=== PATIENT | male | born 2000 | race Two or more races ===

== ENCOUNTER 2021-02-18 10:55 | Outpatient (REF) | payer OTHER, SELFPAY ==
[2021-02-18 11:15] LABS: COVID-19 Test Negative (Negative)
== END 2021-02-18 10:56 | disposition home or self-care (01) ==
LOC: HO.LAB 10:55
PROVIDERS: Visit Provider Internal Medicine
DX: Z20.822 Contact with and (suspected) exposure to COVID-19 (principal)
CPT/HCPCS: 36415; 87635; C9803

== ENCOUNTER 2021-03-09 08:51 | Emergency (ER) | payer OTHER, SELFPAY ==
--- NOTE | ~2021-03-09 | XR_ITS ---
EXAMINATION: XR ANKLE, LEFT CLINICAL INFORMATION: Pain. COMPARISON: None TECHNIQUE: AP, lateral, and mortise views of the left ankle. FINDINGS: There is moderate lateral malleolar soft tissue swelling. No visible acute fracture, dislocation or subluxation seen. The ankle mortise and subtalar joints are normal. XR/XR ankle LT 2V IMPRESSION: Moderate lateral malleolar soft tissue swelling. No visible acute fracture, dislocation or lytic process seen.
[2021-03-09 09:00] VITALS: BP 129/79; PULSE 82; RESP 14; TEMP 36.2; O2SAT 97; BMI 29.5
--- NOTE | 2021-03-09 09:05 | ED.LOWEXIN ---
HPI - Extremity Injury (Lower) General Chief Complaint: Extremity Injury, Lower Stated Complaint: ankle injury Time Seen by Provider: 03/09/21 09:01 Source: patient Mode of arrival: ambulatory Limitations: no limitations History of Present Illness HPI Narrative: 20-year-old male with a past medical history of a benign heart murmur here with complaints of left ankle pain after an inversion injury which occurred yesterday while playing basketball. Related Data Allergies Allergy/AdvReac Type Severity Reaction Status Date / Time No Known Allergies Allergy Unverified 06/20/20 16:41 Review of Systems Review of Systems: Yes all other systems are reviewed and are negative Constitutional: Constitutional: Reports no additional constitutional complaints, Denies body ache(s), Denies chills, Denies fever(s), Denies headache(s) and Denies weakness Eyes: Eyes: Reports no additional eye complaints and Denies change in vision ENT: Reports system reviewed and no additional complaints, except as documented, Denies dizziness, Denies headache(s), Denies nasal congestion, Denies nasal discharge and Denies neck pain Cardiovascular: Cardiovascular: Reports no additional cardiovascular complaints, Denies chest pain, Denies leg edema and Denies dyspnea Respiratory: Respiratory: Reports no additional respiratory complaints, Denies cough and Denies dyspnea Gastrointestinal: Gastrointestinal: Reports no additional gastrointestinal complaints, Denies abdominal pain, Denies diarrhea, Denies nausea and Denies vomiting Genitourinary: Genitourinary: Denies urinary incontinence Musculoskeletal: Musculoskeletal: Reports no additional musculoskeletal complaints, Denies back pain, Reports arthralgias, Reports joint swelling, Reports limited range of motion, Denies neck pain, Denies numbness and Denies tingling Integumentary/Breasts: Skin/Breast: Reports system reviewed and no additional complaints, except as docu and Denies rash Neurologic: Reports system reviewed and no additional complaints, except as documented, Denies Abnormal speech present, Denies dizziness, Denies headache(s), Denies numbness, Denies tingling and Denies weakness PMFSH Past Medical History Attestation statement: The following information was validated with the patient. Source: old records reviewed and nursing notes reviewed Medical History Heart murmur Social History Social History Advance Directives: Yes Advance Directives Information Provided: Yes Advance Directives on File: No Physical Exam Vital Signs: Vital Signs: Last Vital Signs Temp 97.2 F 03/09/21 09:00 Pulse 82 03/09/21 09:00 Resp 14 03/09/21 09:00 BP 129/79 03/09/21 09:00 Pulse Ox 97 03/09/21 09:00 Body Mass Index 29.5 Const: General: cooperative, healthy appearing, comfortable and no acute distress Orientation/consciousness: patient oriented x3 Limitations: no limitations HENMT: Head: Yes normal to inspection Ears: hearing grossly normal bilaterally General nose exam: Normal external nose present Face and sinus: Yes normal facial exam Mouth: Normal oral and palatal mucosa present Throat: Yes posterior oropharynx normal Eyes: General: appearance normal, both eyes and all related structures Pupils: Equal, round and reactive pupils present Neck: Neck: Yes normal visual inspection Chest: Chest palpation & inspection: normal inspection of the chest Resp: Effort & Inspection: normal respiratory effort Auscultation: clear to auscultation bilaterally Cardio: Rate: regular rate Rhythm: regular rhythm Peripheral pulses: Peripheral pulses 2+ throughout GI: Inspection: Yes normal to inspection Palpation (GI): Soft to palpation and nontender Auscultation: normal bowel sounds Back/Spine/Pelvis: Thoracic/Lumbar Spine: thoracic and lumbar spine normal to inspection Skin: General skin exam: no rashes or lesions noted Neuro: General: patient oriented x3, no focal motor deficits and normal sensation to monofilament Cranial nerves: Yes Equal, round and reactive pupils present Cognition (Neuro): normal cognition Speech: No Abnormal speech present Gait exam (Neuro): Normal gait present Motor exam (neuro): 5/5 motor strength present throughout Extrem: Other: No tenderness over the foot. There is mild swelling and tenderness over the lateral aspect of the ankle. No tenderness over the medial aspect or posterior aspect. Negative Aguillon test. No ligamental laxity. Pain with dorsiflexion but able General: Yes normal to inspection Course Course Course Narrative: 20-year-old male here with left ankle pain status post inversion injury yesterday. Will need x-rays. If negative likely sprain and will need air splint and crutches. 1030-x-ray negative for any bony abnormality. Likely sprain. Will place an air cast and given crutches w/ instruction. Reviewed MARY BETH, f/u with PCP in 1 week if no improvement. Reviewed worrisome signs and symptoms when to return to the emergency department. Comfortable discharge home. Procedures Procedure Narrative Procedure Narrative: Air cast and crutches MDM - Extremity Injury (Lower) MDM Narrative Medical decision making narrative: Fracture Differential Diagnosis Differential diagnosis: Likely ankle sprain and strain Medical Records Attestation: I reviewed the patient's medical records. Lab Data Attestation: I reviewed the patient's lab results. Imaging Data left ankle x-ray: Attestation: I personally reviewed and interpreted this imaging study as follows: Radiologist's impression: EXAMINATION: XR ANKLE, LEFT CLINICAL INFORMATION: Pain. COMPARISON: None TECHNIQUE: AP, lateral, and mortise views of the left ankle. FINDINGS: There is moderate lateral malleolar soft tissue swelling. No visible acute fracture, dislocation or subluxation seen. The ankle mortise and subtalar joints are normal. XR/XR ankle LT 2V IMPRESSION: Moderate lateral malleolar soft tissue swelling. No visible acute fracture, dislocation or lytic process seen. Discharge Plan Discharge Clinical Impression: Ankle sprain and strain Patient Disposition: Home, Self-Care Instructions: Ankle Sprain (ED) Additional Instructions: For the next few days use the air splint and crutches. Limit weight-bearing. Once here able to bear weight on the ankle without experiencing pain when you may stop using the crutches. Elevation, ice, alternate Motrin and Tylenol at home for pain Follow-up with your primary care doctor in 5-7 days for persistent pain Referrals: Physician,Unknown [Primary Care Provider] - 2 days Interventions: ED Discharge Assessment Last Done: 03/09/21 10:24 Discharge Date/Time: 03/09/21 10:20
== END 2021-03-09 10:20 | disposition home or self-care (01) ==
LOC: HO.ED 09:21
PROVIDERS: Emergency Provider Emergency Medicine Emergency Medical Services
DX: S93.402A Sprain of unspecified ligament of left ankle, initial encounter (principal); S96.912A Strain of unspecified muscle and tendon at ankle and foot level, left foot, initial encounter; X50.1XXA Overexertion from prolonged static or awkward postures, initial encounter; Y93.67 Activity, basketball; Y92.310 Basketball court as the place of occurrence of the external cause; Y99.9 Unspecified external cause status
CPT/HCPCS: 73600; 99283

== ENCOUNTER 2021-04-23 07:36 | Emergency (ER) | payer OTHER, SELFPAY ==
--- NOTE | ~2021-04-23 | XR_ITS ---
EXAMINATION: XR HAND, RIGHT CLINICAL INFORMATION: Trauma COMPARISON: Previous x-ray April 2019 TECHNIQUE: PA, lateral, and oblique views of the right hand. FINDINGS: The bones and soft tissues are normal. No fracture. Alignment is anatomic. Joint spaces are maintained. No erosions or soft tissue calcifications. XR/XR hand RT min 3V IMPRESSION: Normal right hand.
[2021-04-23 07:53] VITALS: BP 125/79; PULSE 62; RESP 16; TEMP 36.6; O2SAT 100; BMI 29.5
--- NOTE | 2021-04-23 07:56 | ED.EXTPRO ---
HPI - Extremity Problem General Chief complaint: Extremity Injury, Upper Stated complaint: Figure pain Time Seen by Provider: 04/23/21 07:54 Source: patient Mode of arrival: ambulatory Limitations: no limitations History of Present Illness MD Complaint: extremity pain Onset (ago): day(s) (1) Pain Consistency: constant Location: right and upper extremity (hand middle finger knuckle) Quality: aching Radiation: none Relieving factors: nothing Exacerbating factors: palpation Associated symptoms: denies other symptoms Context: other (playing basketball and hit R hand dominant into a pole) Related Data Allergies Allergy/AdvReac Type Severity Reaction Status Date / Time No Known Allergies Allergy Unverified 06/20/20 16:41 Review of Systems Review of Systems: Constitutional : No Fever, No Chills ENT/Mouth : No Ear Pain, No Hoarseness, No sore throat Eyes: No Eye Pain, No Swelling, No Redness, No Foreign Body Cardiovascular : No Chest Pain, No SOB Respiratory : No Cough, No Dyspnea Gastrointestinal : No Nausea, No Vomiting, No Diarrhea, No abdominal Pain Genitourinary : No Dysuria, No Hematuria Musculoskeletal : positive joint pain, No Myalgias, No Joint Swelling Skin : No Skin lacerations, No rash Neuro : No Weakness, No Numbness, No Loss of Consciousness, No Dizziness, No Headache PMFSH Past Medical History Attestation statement: The following information was validated with the patient. Medical History Heart murmur Social History Social History (Updated 04/23/21 @ 08:14 by Kimmy Chowdhury DO) Patient Tobacco Use Status: Never used Tobacco Advance Directives: No Advance Directives Information Provided: Yes Physical Exam Vital Signs: Vital Signs: Last Vital Signs Temp 98 F 04/23/21 08:00 Pulse 62 04/23/21 08:00 Resp 16 04/23/21 08:00 BP 125/79 04/23/21 08:00 Pulse Ox 100 04/23/21 08:00 Body Mass Index 29.5 Appearance: Alert. Oriented X3. No acute distress. Eyes: Pupils equal, round and reactive to light. ENT: Pharynx normal. Neck: Normal inspection. Neck supple. CVS: Normal heart rate and rhythm. Pulses normal. Respiratory: No respiratory distress. Breath sounds normal. Abdomen: Soft and nontender. Skin: Skin warm and dry. Normal skin color. Normal skin turgor. Extremities: No lower extremity edema. R hand ttp along index, middle, ring finger MCPs distal NV intact Neuro: Oriented X 3. No motor deficit. No sensory deficit. Course Course Course Narrative: no fracture, stable for DC MDM - Extremity (Nontraumatic) MDM Narrative Medical decision making narrative: 20 yo male R hand dominant struck hand into pole playing basketball now c/o pain at this time will obtain xrays for fracture he is NV intact Discharge Plan Discharge Clinical Impression: Hand sprain Qualifiers: Encounter type: initial encounter Laterality: right Qualified Code(s): S63.91XA - Sprain of unspecified part of right wrist and hand, initial encounter Patient Disposition: Home, Self-Care Instructions: Hand Sprain (ED) Additional Instructions: return to ED for any worsening symptoms or concerns wear conner wrap x 5 days follow up with your doctor in 5 days if not better Stand Alone Forms: Work/School Release
[2021-04-23 08:00] VITALS: BP 125/79; PULSE 62; RESP 16; TEMP 36.6; O2SAT 100
== END 2021-04-23 08:51 | disposition home or self-care (01) ==
PROVIDERS: Emergency Provider Emergency Medicine; PCP Internal Medicine
DX: S63.91XA Sprain of unspecified part of right wrist and hand, initial encounter (principal); W22.09XA Striking against other stationary object, initial encounter; Y93.67 Activity, basketball; Y92.310 Basketball court as the place of occurrence of the external cause; Y99.9 Unspecified external cause status
CPT/HCPCS: 73130; 99283; 99284

== ENCOUNTER 2021-08-22 15:33 | Emergency (ER) | payer OTHER, SELFPAY ==
--- NOTE | ~2021-08-22 | CT_ITS ---
EXAMINATION: CT BRAIN CT FACIAL BONES CLINICAL INFORMATION: Trauma, pain COMPARISON: None TECHNIQUE: Contiguous axial imaging was performed from the skull base to vertex without intravenous administration of contrast. CT facial bones also performed in axial plane without contrast. Additional 2-D coronal and sagittal reformatted images are generated on the CT workstation for both exams and uploaded to PACS. This CT examination was performed using dose optimization techniques as appropriate, variously including the following: *Automated exposure control *Adjustment of mA and/or kV according to patient size (this includes techniques or standardized protocols for targeted exams where dose is matched to indication/reason for exam; i.e. extremities or head) *Use of iterative reconstruction technique DLP: 752 mGy-cm (brain) 528 mGy-cm (facial) FINDINGS: Head: There is no intracranial hemorrhage, hematoma, or extra-axial fluid collection. The ventricles are normal in size. There is no hydrocephalus, edema, or mass effect. The jean-white matter differentiation appears symmetric. There is no visible acute territorial infarct or mass lesion. The calvarium appears intact. There is no pneumocephalus or orbital emphysema. The visualized sinuses and middle ears and mastoid air cells show no significant mucosal thickening. There are no air-fluid levels. Facial: The facial bones appear intact with no fracture. The orbital rims and floors, nasal bones, zygomatic arches, pterygoid plates, and mandible show no fracture. Globes and retrobulbar soft tissues are unremarkable. There are unerupted molars on both sides of the mandible. CT/CT facial bones wo con IMPRESSION: 1. No acute intracranial abnormality. 2. No facial bone fracture.
--- NOTE | ~2021-08-22 | CT_ITS ---
EXAMINATION: CT BRAIN CT FACIAL BONES CLINICAL INFORMATION: Trauma, pain COMPARISON: None TECHNIQUE: Contiguous axial imaging was performed from the skull base to vertex without intravenous administration of contrast. CT facial bones also performed in axial plane without contrast. Additional 2-D coronal and sagittal reformatted images are generated on the CT workstation for both exams and uploaded to PACS. This CT examination was performed using dose optimization techniques as appropriate, variously including the following: *Automated exposure control *Adjustment of mA and/or kV according to patient size (this includes techniques or standardized protocols for targeted exams where dose is matched to indication/reason for exam; i.e. extremities or head) *Use of iterative reconstruction technique DLP: 752 mGy-cm (brain) 528 mGy-cm (facial) FINDINGS: Head: There is no intracranial hemorrhage, hematoma, or extra-axial fluid collection. The ventricles are normal in size. There is no hydrocephalus, edema, or mass effect. The jean-white matter differentiation appears symmetric. There is no visible acute territorial infarct or mass lesion. The calvarium appears intact. There is no pneumocephalus or orbital emphysema. The visualized sinuses and middle ears and mastoid air cells show no significant mucosal thickening. There are no air-fluid levels. Facial: The facial bones appear intact with no fracture. The orbital rims and floors, nasal bones, zygomatic arches, pterygoid plates, and mandible show no fracture. Globes and retrobulbar soft tissues are unremarkable. There are unerupted molars on both sides of the mandible. CT/CT head/brain wo con IMPRESSION: 1. No acute intracranial abnormality. 2. No facial bone fracture.
[2021-08-22 16:08] VITALS: BP 135/78; PULSE 64; RESP 18; TEMP 36.7; O2SAT 99; BMI 30.4
--- NOTE | 2021-08-22 16:17 | ED_ITS ---
HPI - Head Injury General Chief complaint: Head Injury Stated complaint: head injury on 08/21 Time Seen by Provider: 08/22/21 16:11 History of Present Illness HPI Narrative: Patient is 20 old was playing basketball yesterday. Subsequently fell. Hitting his head. Positive dizziness. Positive nausea. There was no loss of consciousness. Patient is complaining of pain to the face. There is no focal weakness. No neck pain. Patient not on blood thinners. Patient is from home. Related Data Allergies Allergy/AdvReac Type Severity Reaction Status Date / Time No Known Allergies Allergy Unverified 06/20/20 16:41 Review of Systems Review of Systems: No fever no chills no diaphoresis no nausea no vomiting no focal weakness all system reviewed otherwise negative [facility] Past Medical History Attestation statement: The following information was validated with the patient. Medical History Heart murmur Social History Social History Patient Tobacco Use Status: Never used Tobacco Advance Directives: No Advance Directives Information Provided: No Physical Exam Vital Signs: Vital Signs: Last Vital Signs Temp 98.0 F 08/22/21 16:08 Pulse 64 08/22/21 16:08 Resp 18 08/22/21 16:08 BP 135/78 08/22/21 16:08 Pulse Ox 99 08/22/21 16:08 Body Mass Index 30.4 Appearance: Alert. Oriented X3. No acute distress. Eyes: Pupils equal, round and reactive to light. positive swelling to the midline face and to the bridge of the nose. There is no midface tenderness. There is no malocclusion noted. ENT: Pharynx normal. Neck: Normal inspection. Neck supple. No lymph nodes noted. No crepitus CVS: Normal heart rate and rhythm. Pulses normal. Normal S1 and S2 Respiratory: No respiratory distress. Breath sounds normal. No Wheezing. No rales Abdomen: Soft and nontender. No rigidity. No distention. good BS x4 Skin: Skin warm and dry. Normal skin color. Normal skin turgor. Extremities: No lower extremity edema. Neurovascular intact to all extremities. No Lacerations. No Rash Neuro: Oriented X 3. No motor deficit. No sensory deficit. Moving all extermities. No slurred speech MDM - Head Injury MDM Narrative Medical decision making narrative: patient's CT scan of the head and face were both negative for any acute fracture. Will have patient follow head injury precautions. Patient's tetanus was updated. In stable condition with discharge home. Neurologically intact. Medical Records Attestation: I reviewed the patient's medical records. Lab Data Attestation: I reviewed the patient's lab results. Discharge Plan Discharge Clinical Impression: Closed head injury Patient Disposition: Home, Self-Care Instructions: Head Injury (ED) Referrals: Gricel Barreto MD [Primary Care Provider] - 2 days
[2021-08-22] MEDS: Diphth,Pertus(ACell),Tet Adult 0.5 ML SYRINGE IM (17:28)
[2021-08-22 18:03] VITALS: BP 133/71; PULSE 65; RESP 18; O2SAT 98
== END 2021-08-22 18:04 | disposition home or self-care (01) ==
PROVIDERS: Emergency Provider Emergency Medicine Emergency Medical Services; PCP Internal Medicine
DX: S09.90XA Unspecified injury of head, initial encounter (principal); W01.10XA Fall on same level from slipping, tripping and stumbling with subsequent striking against unspecified object, initial encounter; R11.0 Nausea; Y93.67 Activity, basketball; Y92.310 Basketball court as the place of occurrence of the external cause; Y99.9 Unspecified external cause status
CPT/HCPCS: 70450; 70486; 90471; 90715; 99283; 99284

== ENCOUNTER 2021-09-09 10:56 | Outpatient (REF) | payer OTHER, SELFPAY | END 2021-09-09 10:57 | disposition home or self-care (01) | LOC: HO.LAB 10:56 | PROVIDERS: PCP Internal Medicine; Visit Provider Internal Medicine | DX: Z20.822 Contact with and (suspected) exposure to COVID-19 (principal) | CPT/HCPCS: C9803; U0003; U0005 ==

== ENCOUNTER 2022-04-18 09:32 | Emergency (ER) | payer OTHER, SELFPAY ==
[2022-04-18 09:48] VITALS: BP 148/87; PULSE 65; RESP 16; TEMP 36.4; O2SAT 98; BMI 31.4
--- NOTE | 2022-04-18 10:20 | ED_ITS ---
HPI - Male Genitourinary General Chief complaint: Urogenital-Male Stated complaint: ?uti Time Seen by Provider: 04/18/22 10:19 Source: patient Mode of arrival: ambulatory Limitations: no limitations History of Present Illness HPI Narrative: 21-year-old male came in for evaluation for UTI. Three days ago patient noted mehdi blood in the urine with some upper abdominal pain/epigastric pain now pain is resolved, patient was seen at an urgent care tested for STD and was negative patient was prescribed antibiotic for UTI which patient opted not to take it seeking 2nd opinion today in the ED. Patient is sexually active with 1 partner no risk for STD. No history of kidney stones or UTI in the past. No urethral discharge, no rash. Related Data Allergies Allergy/AdvReac Type Severity Reaction Status Date / Time No Known Allergies Allergy Unverified 04/18/22 09:48 Review of Systems Review of Systems: All other systems are reviewed and are negative Constitutional: Reports as per HPI and Reports no additional constitutional complaints Eyes: Reports as per HPI and Reports no additional eye complaints Reports system reviewed and no additional complaints, except as documented Cardiovascular: Reports as per HPI and Reports no additional cardiovascular co mplaints Respiratory: Reports as per HPI and Reports no additional respiratory complaints Gastrointestinal: Reports as per HPI and Reports no additional gastrointestinal complaints Genitourinary: Reports no additional female genitourinary complaints Musculoskeletal: Reports no additional musculoskeletal complaints Skin/Breast: Reports system reviewed and no additional complaints, except as docu Psychiatric: Reports no additional psychiatric complaints Endocrine: Reports no additional endocrine complaints Hematologic/Lymphatic: Reports no additional hematologic/lymphatic complaints Allergic/Immunologic: Reports no additional allergic/immunologic complaints Reports system reviewed and no additional complaints, except as documented and Reports Abnormal speech present [facility] Past Medical History Medical History Heart murmur Social History Social History Patient Tobacco Use Status: Never used Tobacco Advance Directives: No Advance Directives Information Provided: No Physical Exam Vital Signs: Vital Signs: Last Vital Signs Temp 97.5 F 04/18/22 09:48 Pulse 65 04/18/22 09:48 Resp 16 04/18/22 09:48 BP 148/87 H 04/18/22 09:48 Pulse Ox 98 04/18/22 09:48 O2 Del Method 04/18/22 09:48 BMI result Body Mass Index 31.4 Vital signs have been reviewed as appeared to be correct. Blood pressure normal. Heart rate normal. Respiration rate normal. Temperature normal. Oxygen saturation normal. Appearance: Alert. Oriented X3. No acute distress. Head: Normal external exam. Normocephalic. Atraumatic. No [place] signs noted. No raccoon eyes noted Eyes: PERRLA. EOMI. Conjunctiva and sclera normal. Eyelids normal. ENT: TM's Normal. Pharynx normal. Uvula midline. Moist mucous membranes. No trismus noted. No drooling noted. No muffled voice noted. Neck: Normal inspection. Neck supple. FROM. No adenopathy. Thyroid Normal. No meningeal signs. No neck mass noted. CVS: Normal heart rate and rhythm. Heart sound normal. No murmurs noted. Pulses normal throughout. Respiratory: No respiratory distress. Painless inspiration. Breath sounds normal. No wheezes/rales/rhonchi noted. Chest nontender. No accessory muscle usage noted or decreased air movement noted. Abdomen: Soft and nontender. Bowel sounds normal in all 4 quadrants. No distention noted. No organomegaly noted. No visible injury noted. exam: Circumcised, normal inspection. Cremasteric reflexes intact. Back: No CVA tenderness. Full range of motion noted. Skin: Skin warm and dry. Normal skin color. Normal skin turgor. No rashes/lesions/lacerations noted. Extremities: No lower extremity edema. Extremities exhibit normal range of motion. Extremities nontender. Neuro: Oriented X 3. Cranial nerve exam: II-XII are grossly intact No motor deficit. No sensory deficit. Reflexes normal. Course Course Course Narrative: 21-year-old male came in for evaluation of blood in the urine. UA revealed no UTI, pending STD (patient tested negative at walk-in urgent care). Patient at this point no need for antibiotic to follow up with urologist if blood in the urine reoccur. [facility] - Male Genitourinary Lab Data Attestation: I reviewed the patient's lab results. Labs: Lab Results 04/18/22 Range/Units 10:04 Urine Color YELLOW Urine Appearance HAZY Urine pH 7.0 (5.0-8.0) Ur Specific [place] <= 1.005 (1.005-1.025) Urine Protein NEG (NEG-TRACE) MG/DL Urine Glucose (UA) NEG (NEG) MG/DL Urine Ketones NEG (NEG) MG/DL Urine Blood NEG (NEG) Urine Nitrite NEG (NEG) Ur Leukocyte Esterase NEG (NEG) Discharge Plan Discharge Clinical Impression: Hematuria Patient Disposition: Home, Self-Care Instructions: Hematuria (ED) Referrals: Gricel Barreto MD [Primary Care Provider] - Clyde Simon MD [Physician] -
[2022-04-18 10:22] LABS: Appearance Urine HAZY; Color Urine YELLOW; Glucose Urine UA NEG (NEG); Leukocyte Esterase Urine NEG (NEG); Nitrite Urine NEG (NEG); Specific Gravity - Urine <= 1.005 (1.005-1.025); Urine Blood NEG (NEG); Urine Ketones NEG (NEG); Urine Protein NEG (NEG-TRACE)
[2022-04-18 16:49] LABS: CT PCR NOT DETECTED (Not Detect.); NG PCR NOT DETECTED (Not Detect.)
== END 2022-04-18 12:05 | disposition home or self-care (01) ==
PROVIDERS: Emergency Provider Emergency Medicine; PCP Internal Medicine
DX: R31.9 Hematuria, unspecified (principal); R10.10 Upper abdominal pain, unspecified
CPT/HCPCS: 81003; 87491; 87591; 99283

== ENCOUNTER 2022-07-19 13:47 | Emergency (ER) | payer OTHER, SELFPAY ==
--- NOTE | ~2022-07-19 | XR_ITS ---
EXAMINATION: XR FEMUR, RIGHT CLINICAL INFORMATION: Injury. Pain. COMPARISON: None TECHNIQUE: AP and lateral views of the right femur were obtained. FINDINGS: The bones and soft tissues are normal. No fracture. No osseous lesions. XR/XR femur RT 2V IMPRESSION: Normal right femur.
[2022-07-19 13:59] VITALS: BP 129/71; PULSE 93; RESP 18; O2SAT 97; BMI 32.5
[2022-07-19 17:11] VITALS: BP 132/74; PULSE 74; RESP 18; TEMP 36.6; O2SAT 98
--- NOTE | 2022-07-19 17:50 | ED.EXTPRO ---
HPI - Extremity Problem General Chief complaint: Extremity Problem Stated complaint: hamstring Time Seen by Provider: 07/19/22 17:21 Source: patient Mode of arrival: ambulatory Limitations: no limitations History of Present Illness HPI Narrative: 21-year-old male who presents with right posterior thigh pain which occurred suddenly. Patient tells me that he was warming up to play football and when he took off to run he felt an immediate pain in his posterior right thigh and a popping sensation.. Patient reports since then continued pain. No associated numbness, tingling or weakness Related Data Previous Rx's Medication Instructions Recorded ibuprofen 600 mg tablet 600 mg PO Q6H PRN pain #30 tabs 07/19/22 Allergies Allergy/AdvReac Type Severity Reaction Status Date / Time No Known Allergies Allergy Unverified 04/18/22 09:48 Review of Systems Review of Systems: Yes all other systems are reviewed and are negative Constitutional: Constitutional: Reports no additional constitutional complaints, Denies body ache(s), Denies chills, Denies fever(s), Denies headache(s) and Denies weakness Eyes: Eyes: Reports no additional eye complaints and Denies change in vision ENT: Reports system reviewed and no additional complaints, except as documented, Denies dizziness, Denies headache(s), Denies nasal congestion, Denies nasal discharge and Denies neck pain Cardiovascular: Cardiovascular: Reports no additional cardiovascular complaints, Denies chest pain, Denies leg edema and Denies dyspnea Respiratory: Respiratory: Reports no additional respiratory complaints, Denies cough and Denies dyspnea Gastrointestinal: Gastrointestinal: Reports no additional gastrointestinal complaints, Denies abdominal pain, Denies diarrhea, Denies nausea and Denies vomiting Genitourinary: Genitourinary: Denies urinary incontinence Musculoskeletal: Musculoskeletal: Reports no additional musculoskeletal complaints, Denies back pain, Denies arthralgias, Denies joint swelling, Denies limited range of motion, Denies neck pain, Denies numbness, Denies tingling and Reports other (+muscle pain ) Integumentary/Breasts: Skin/Breast: Reports system reviewed and no additional complaints, except as docu and Denies rash Neurologic: Reports system reviewed and no additional complaints, except as documented, Denies Abnormal speech present, Denies dizziness, Denies headache(s), Denies numbness, Denies tingling and Denies weakness FORMERLY [facility] Past Medical History Attestation statement: The following information was validated with the patient. Source: old records reviewed and nursing notes reviewed Medical History Heart murmur Social History Social History Patient Tobacco Use Status: Never used Tobacco Advance Directives: No Advance Directives Information Provided: No Physical Exam Vital Signs: Vital Signs: Last Vital Signs Temp 97.8 F 07/19/22 17:11 Pulse 74 07/19/22 17:11 Resp 18 07/19/22 17:11 BP 132/74 07/19/22 17:11 Pulse Ox 98 07/19/22 17:11 O2 Del Method 07/19/22 17:11 BMI result Body Mass Index 32.5 Const: General: cooperative, healthy appearing, comfortable and no acute distress Orientation/consciousness: patient oriented x3 Limitations: no limitations HEENT: Head: Yes normal to inspection Ears: hearing grossly normal bilaterally General nose exam: Normal external nose present Face and sinus: Yes normal facial exam Mouth: Normal oral and palatal mucosa present Throat: Yes posterior oropharynx normal Eyes: General: appearance normal, both eyes and all related structures Pupils: Equal, round and reactive pupils present Neck: Neck: Yes normal visual inspection Chest: Chest palpation & inspection: normal inspection of the chest Resp: Effort & Inspection: normal respiratory effort Auscultation: clear to auscultation bilaterally Cardio: Rate: regular rate Rhythm: regular rhythm Peripheral pulses: Peripheral pulses 2+ throughout GI: Inspection: Yes normal to inspection Palpation (GI): Soft to palpation and nontender Auscultation: normal bowel sounds Back/Spine/Pelvis: Thoracic/Lumbar Spine: thoracic and lumbar spine normal to inspection Skin: General skin exam: no rashes or lesions noted Neuro: General: patient oriented x3, no focal motor deficits and normal sensation to monofilament Cranial nerves: Yes Equal, round and reactive pupils present Cognition (Neuro): normal cognition Speech: No Abnormal speech present Gait exam (Neuro): Normal gait present Motor exam (neuro): 5/5 motor strength present throughout Extrem: Other: To the posterior thigh there is swelling/tenderness more proximally and medially. Pain with flexion/extension of the knee but able. NV intact distally. NO knee pain. NO hip pain. Course Course Course Narrative: X-rays of the leg show no bony abnormality. Likely hamstring strain. Low concern for rupture as patient is able to flex and extend the leg. Patient placed in Eduard wrap and given crutches for home. Recommend follow-up with Orthopedics the next week to for any persistent symptoms. Recommended ice, crutches for ambulation, Eduard wrap. Patient should use ibuprofen for pain as needed. Reviewed worrisome signs and symptoms of when to return to the emergency room. Comfortable plan for discharge home. MDM - Extremity (Nontraumatic) MDM Narrative Medical decision making narrative: 21 yo Medical Records Attestation: I reviewed the patient's medical records. Lab Data Attestation: I reviewed the patient's lab results. Imaging Data FEMUR XRAY: Attestation: I personally reviewed and interpreted this imaging study as follows: Radiologist's impression: Launch?Image [place] [id number] XRay Report Signed Patient: Poli Hoff MR#: [id number] : 2000 Acct:[id number] Age/Sex: 21 / M ADM Date: 07/19/22 Loc: HO.ED Attending Dr: Ordering Physician: Tiera Huang NP Date of Service: 07/19/22 Procedure(s): XR femur RT 2V Accession Number(s): [id number] cc: Tiera Huang NP~ EXAMINATION: XR FEMUR, RIGHT CLINICAL INFORMATION: Injury. Pain.? COMPARISON: None? TECHNIQUE: AP and lateral views of the right femur were obtained. FINDINGS: The bones and soft tissues are normal. No fracture. No osseous lesions. ? XR/XR femur RT 2V IMPRESSION: Normal right femur. Procedures Procedure Narrative Procedure Narrative: EDUARD WRAP, CRUTCHES Discharge Plan Discharge Clinical Impression: Right hamstring muscle strain Patient Disposition: Home, Self-Care Instructions: Muscle Strain (ED), Hamstring Injury (ED), R.I.C.E. Treatment (ED) Additional Instructions: Rest, ice, eduard wrap for comfort, crutches for ambulation Elevation of the leg Follow-up with orthopedics for any persistent symptoms Prescriptions: New ibuprofen 600 mg tablet 600 mg PO Q6H PRN (Reason: pain) Qty: 30 0RF Referrals: [facility] [Provider Group] - 1 week Stand Alone Forms: Work/School Release
[2022-07-19] MEDS: Ketorolac Tromethamine 60 MG/2 ML VIAL IM (18:40)
== END 2022-07-19 18:58 | disposition home or self-care (01) ==
PROVIDERS: Emergency Provider Internal Medicine; PCP Internal Medicine
DX: S86.911A Strain of unspecified muscle(s) and tendon(s) at lower leg level, right leg, initial encounter (principal); S76.811A Strain of other specified muscles, fascia and tendons at thigh level, right thigh, initial encounter; M79.604 Pain in right leg; Y93.61 Activity, american tackle football; Y93.9 Activity, unspecified; Y92.321 Football field as the place of occurrence of the external cause; Y99.9 Unspecified external cause status
CPT/HCPCS: 73552; 96372; 99284; J1885

== ENCOUNTER 2022-09-17 14:06 | Outpatient (REF) | payer OTHER, SELFPAY ==
--- NOTE | ~2022-09-17 | XR_ITS ---
EXAMINATION: XR KNEE, LEFT CLINICAL INFORMATION: Left knee pain COMPARISON: None TECHNIQUE: AP and lateral views of the left knee. FINDINGS: No fracture, dislocation, or destructive process. No visible suprapatellar effusion. Hoffa's fat pad appears normal. There is no joint narrowing or erosive change. XR/XR knee LT 2V IMPRESSION: Unremarkable left knee.
== END 2022-09-17 14:07 | disposition home or self-care (01) ==
LOC: HO.XRAY 14:06
PROVIDERS: PCP Internal Medicine; Visit Provider Internal Medicine
DX: M25.562 Pain in left knee (principal)
CPT/HCPCS: 73560

== ENCOUNTER → 2022-09-18 09:32 | Outpatient (REF) | payer OTHER, SELFPAY ==
--- NOTE | 2022-09-18 09:38 | CA_ITS ---
Transthoracic Echocardiogram Amended Patient (Last, First, Middle): Poli Hoff, Gender: Male Date of : 2000 Age: 21 Procedure Date: 09/18/2022 Procedure Type: Transthoracic Echocardiogram Location: OP Height: 175.26 cm Weight: 99.34 kg BSA: 2.15 m2 Heart Rate: 69 bpm BP: 115 / 70 mmHg Trial Lawyer: MYA Referring MD: Gricel Barreto MD Symptoms: R94.31 - Abnormal electrocardiogram [ECG] [EKG] Study Quality: Adequate ECG Rhythm: Sinus Conclusions: - The left ventricular systolic function is normal. The calculated ejection fraction is 59% by biplane method. - There is mild dilatation of the sinuses of Valsalva measuring 4.30 cm and mild dilatation of the ascending aorta measuring 3.90 cm. - Small membranous VSD noted. - Consider CTA for further evaluation. Findings Left Ventricle Normal left ventricular cavity size. There is normal left ventricular wall thickness. The left ventricular systolic function is normal. The calculated ejection fraction is 59% by biplane method. There is no evidence of regional wall motion abnormalities. Diastolic function is normal for age. Small membranous VSD noted. Right Ventricle Normal right ventricular cavity size and systolic function. Atria Both atria are normal in size. Aortic Valve There is a normal trileaflet aortic valve. There is no aortic valve stenosis. There is no aortic valve regurgitation. Mitral Valve The mitral valve appears normal. There is trace mitral valve regurgitation. There is no mitral valve stenosis. Pulmonic Valve There is trace pulmonic valve regurgitation. Tricuspid Valve Normal tricuspid valve structure. There is mild tricuspid valve regurgitation. There is no evidence of pulmonary hypertension. Great Vessels There is mild dilatation of the sinuses of Valsalva measuring 4.30 cm and mild dilatation of the ascending aorta measuring 3.90 cm. Venous The inferior vena cava is normal in size and collapses greater than 50% with inspiration. Pericardium/Pleural There is no evidence of pericardial effusion. Prior Study Comparison No prior study available for comparison. Measurements 2D Linear Measurements IVSd: 0.98 0.6-0.9/0.6-1.0 cm LVIDd: 5.04 3.9-5.3/4.2-5.9 cm LVIDd Index: 2.34 2.4-3.2/2.2-3.1 cm/m2 LVIDs: 3.47 2.0-3.6 cm LVPWd: 0.99 0.7-1.1 cm LA Diam: 2.70 2.7-3.8/3.0-4.0 cm LAIDs Index: 1.26 1.5-2.3 cm/m2 LV Mass: 224.49 67-162/88-224 g LV Mass Index: 104.42 43-95/49-115 g/m2 LVOT Diam: 2.40 3.0+(-)1.3 cm 2D Volumes LA Vol: 26.00 2D Systolic Function EF 4C: 55.00 >55% EF 2C: 61.60 >55% EF BiP: 59.10 >55% Mitral Valve MV Pk E: 0.97 MV PK A: 0.53 MV Decel Time: 209.00 E/A: 1.80 E'Lateral: 15.40 E'Medial: 8.94 E/E' Med: 10.90 E/E' Lat: 6.30 PHT: 61.00 MVA PHT: 3.61 Decel [place]: 4.66 Aortic Valve AoV Pk Roger: 1.00 AoV Mn Roger: 0.77 AoV VTI: 0.22 AoV Pk Grad: 4.00 Aov Mn Grad: 3.00 ISHA Cont.VTI: 3.81 LVOT LVOT Pk Roger: 0.88 LVOT Mn Roger: 0.60 LVOT VTI: 0.19 LVOT Pk Grad: 3.00 LVOT Mn Grad: 2.00 LVOT Diam: 2.40 LVOT Area: 4.52 Diastolic Function MV Pk E: 0.97 MV Pk A: 0.53 E/A: 1.80 E'Medial: 8.94 E/E' Med: 10.90 E' Laterial: 15.40 E/E' Lat: 6.30 Right Ventricle TAPSE (mm): 28.00 TVS' Roger: 12.40 Tricuspid Valve TR Pk Roger: 2.61 TR Pk Grad: 27.00 RA Press: 3.00 RVSP: 30.00 Great Vessels Aorta Sinus of Valsalva: 4.30 2.0-3.5 cm Ao Asc: 3.90 2.1-3.4 cm Pulmonary Valve PV Pk Roger: 1.59 Peak PV Grad: 10.00 Updated in Other Vendor System with Status of Final Odell Gonzalez MD electronically signed on 09/30/2022 12:49:00 PM with status of Final
== END ==
LOC: HO.CARD 09:32
PROVIDERS: PCP Internal Medicine; Visit Provider Internal Medicine
DX: R01.1 Cardiac murmur, unspecified (principal); R94.31 Abnormal electrocardiogram [ECG] [EKG]
CPT/HCPCS: 93306

== ENCOUNTER → 2022-09-30 12:32 | Outpatient (BNVA) | payer OTHER, SELFPAY | PROVIDERS: PCP Internal Medicine; Referring Provider Internal Medicine; Visit Provider Internal Medicine | DX: I77.810 Thoracic aortic ectasia (principal); Q21.0 Ventricular septal defect | CPT/HCPCS: 93005; 99202 ==

== ENCOUNTER 2022-10-27 09:49 | Outpatient (REF) | payer OTHER, SELFPAY ==
--- NOTE | ~2022-10-27 | CT_ITS ---
EXAMINATION: CT ANGIOGRAM CHEST CLINICAL INFORMATION: Thoracic aortic ectasia COMPARISON: None TECHNIQUE: Multiple axial images were obtained through the chest after the administration of 70 mL of Omnipaque 350 intravenous contrast. Extensive vascular post-processing including two-dimensional and three-dimensional reformatted images were created and reviewed on an independent workstation. This CT examination was performed using dose optimization techniques as appropriate, variously including the following: *Automated exposure control *Adjustment of mA and/or kV according to patient size (this includes techniques or standardized protocols for targeted exams where dose is matched to indication/reason for exam; i.e. extremities or head) *Use of iterative reconstruction technique DLP: 160 mGy-cm FINDINGS: The sinuses measure 4.0 x 3.4 cm. Sinotubular junction, ascending tubular aorta, aortic arch, and descending aorta are normal in caliber. There is no evidence of dissection. Three-vessel aortic arch. The great vessels are patent. The lungs are clear. No mediastinal, hilar, or axillary adenopathy. The upper abdomen is unremarkable. CT/CT angio chest aorta IMPRESSION: The aortic sinuses measure 4.0 cm. The tubular aorta is normal in caliber. Fleischner guidelines were followed.
[2022-10-27] MEDS: iohexoL 350 MG/ML 100 ML INFUS..BTL IV (10:25)
== END 2022-10-27 09:50 | disposition home or self-care (01) ==
LOC: HO.CT 09:49
PROVIDERS: PCP Internal Medicine; Visit Provider Internal Medicine
DX: I77.810 Thoracic aortic ectasia (principal)
CPT/HCPCS: 71275; Q9967

== ENCOUNTER 2023-03-03 09:39 | Emergency (ER) | payer OTHER, SELFPAY ==
--- NOTE | ~2023-03-03 | CT_ITS ---
EXAMINATION: CT ABDOMEN AND PELVIS WITH CONTRAST CLINICAL INFORMATION: Abdominal pain COMPARISON: CT angiogram chest 03/27/2023, abdominal ultrasound 10/24/2016 TECHNIQUE: Multidetector volumetric images were obtained from the superior aspect of the liver through the pubic symphysis following administration 85 mL of Omnipaque 350 intravenous contrast. Sagittal and coronal reformatted images were obtained on the technologist's workstation. Oral contrast: No This CT examination was performed using dose optimization techniques as appropriate, variously including the following: *Automated exposure control *Adjustment of mA and/or kV according to patient size (this includes techniques or standardized protocols for targeted exams where dose is matched to indication/reason for exam; i.e. extremities or head) *Use of iterative reconstruction technique DLP: 680 mGy-cm FINDINGS: LUNG BASES: The visualized lung bases are unremarkable. LIVER, GALLBLADDER, AND BILIARY TREE: The liver is mildly enlarged at 18 cm. No focal hepatic lesion or biliary ductal dilatation is present. The gallbladder is unremarkable with no evidence of radiopaque gallstones, gallbladder wall thickening, or obvious pericholecystic inflammatory changes. PANCREAS: Unremarkable. SPLEEN: A mildly prominent size at 12.6 cm. ADRENAL GLANDS: Unremarkable. KIDNEYS AND URETERS: The kidneys are normal in size, shape, and attenuation. No hydronephrosis, hydroureter, or calculi seen. No perinephric stranding. BLADDER: Unremarkable. GASTROINTESTINAL TRACT: The small and large bowel are unremarkable. The appendix is unremarkable. ABDOMINAL WALL: No significant hernia is appreciated. LYMPH NODES: There are some shotty retroperitoneal lymph nodes present, but no adenopathy. VASCULAR: Unremarkable. PELVIC VISCERA: The prostate and seminal vesicles are unremarkable. OSSEOUS STRUCTURES: Unremarkable. CT/CT abdomen pelvis w IV con IMPRESSION: A cause for the patient's abdominal pain has not been found. Incidental note made of mild hepatosplenomegaly. Fleischner guidelines were followed.
[2023-03-03 09:41] VITALS: BP 138/84; PULSE 83; RESP 18; TEMP 36.7; O2SAT 98; BMI 32.5
--- NOTE | 2023-03-03 10:50 | ED_ITS ---
HPI - General Adult General Chief complaint: Nausea/Vomiting/Diarrhea Stated complaint: Vomiting blood/abd pain Time Seen by Provider: 03/03/23 10:49 Source: patient Limitations: no limitations History of Present Illness HPI narrative: 22-year-old male presents ER complaining of nausea vomiting diarrhea and upper abdominal pain. Patient thought he had some blood in his vomit earlier today. Patient denies similar symptoms in the past. Patient states he also experienced some diarrhea. Patient describes the pain as sharp in nature and increases with palpation. No prior abdominal surgeries. No current prescribed medications. Symptoms mild to moderate. No travel history no known sick contacts. No other complaints at this time. Related Data Previous Rx's Medication Instructions Recorded famotidine 20 mg tablet (Pepcid) 20 mg PO DAILY PRN burning pain 03/03/23 #10 tabs loperamide 2 mg capsule (Imodium 2 mg PO Q4H PRN loose stool #14 03/03/23 A-D) caps ondansetron HCl 4 mg tablet 4 mg PO Q6H PRN nausea and 03/03/23 vomiting #14 tabs Allergies Allergy/AdvReac Type Severity Reaction Status Date / Time No Known Allergies Allergy Verified 12/23/22 13:20 Review of Systems Review of Systems: General: No fever, no chills ENT: No sore throat, no ear pain Cardiovascular: No chest pain, no peripheral edema, no shortness of breath Respiratory: No dyspnea, no sputum production, no cough Muscle skeletal: No malaise, no back pain, no neck pain, no extremity pain GI: Positive epigastric pain, positive nausea vomiting diarrhea : No dysuria, no urgency, no frequency Psychiatric: No depression, no suicidal ideation, no homicidal ideation Skin: No rash Immunology: No immunocompromised Hematology: No bleeding, no bruising PMFSH Past Medical History Attestation statement: The following information was validated with the patient. Medical History Heart murmur Family History Family History Father No problems noted. Mother HTN (hypertension) Social History Social History Housing: Apartment Alcohol intake: never Patient Tobacco Use Status: Never used Tobacco Smoked in Last 30 Days: No e-Cigarette/Vaping Use: Never Used Second Hand Smoke Exposure: No Use of substances other than those prescribed or required for medical reasons: No Advance Directives: No Advance Directives Information Provided: No Current occupational status: employed Cognitive needs: No Hearing needs: No Vision needs: No Physical Exam ED Vital Signs: Vital Signs - 24 hr 03/03/23 09:41 Temperature 98.1 F Pulse Rate 83 Respiratory Rate 18 Blood Pressure 138/84 Pulse Oximetry 98 Oxygen Delivery Method Room Air BMI result Body Mass Index 32.5 General appearance: Awake, alert, cooperative, in no acute distress Skin: Warm, dry, no rash Eyes: PERRL, EOMI, no icterus ENT: Oropharynx normal, uvula midline Neck: Soft supple full range of motion Pulmonary: Breath sounds clear to auscultation bilaterally, no accessory muscle use Cardiovascular: Regular rate and rhythm, no murmurs and rubs Abdomen: Positive epigastric tenderness no rebound or guarding positive bowel sounds Extremities: No deformity, nontender, no peripheral edema noted Neuro: Alert oriented x3, no focal deficit Psych: Normal affect Course Course Course Narrative: Viral gastroenteritis Pancreatitis Dehydration Cholecystitis less likely no right upper quadrant tenderness 22-year-old male positive nausea vomiting diarrhea with epigastric pain. Patient is otherwise well-appearing. Will check CBC CMP lipase and give a L of fluid 4 mg Zofran IV at this time. 12:28 patient still has some epigastric abdominal tenderness on exam no right upper quadrant tenderness. Patient has slight elevated white count AST is slightly elevated also with T bili. Will get a CT of the abdomen with IV contrast at this time. Patient denies any alcohol use. CT abdomen was benign with no acute or emergent findings Patient's repeat abdominal exam was benign with no significant tenderness rebound or guarding, patient was comfortable but still nauseous he was given a repeat dose of Zofran He tolerated p.o. fluids and was discharged Medications Administered Discontinued Medications Generic Name Dose Route Start Last Admin Trade Name Freq PRN Reason Stop Dose Admin Sodium Chloride 1,000 mls @ 999 mls/hr 03/03/23 11:00 03/03/23 12:15 Ns IV 03/03/23 12:00 Infused .Q1H1M SONIA Infusion Iohexol 100 ml 03/03/23 12:46 03/03/23 12:46 Iohexol 350 Mg/Ml 100 Ml Infus..Btl IV 03/03/23 12:47 85 ml ONCE ONE Administration Ondansetron HCl 4 mg 03/03/23 10:53 03/03/23 11:06 Ondansetron Hcl 4 Mg/2 Ml Vial IVPUSH 03/03/23 10:54 4 mg ONCE ONE Administration Ondansetron HCl 4 mg 03/03/23 14:45 03/03/23 14:50 Ondansetron Hcl 4 Mg/2 Ml Vial IVPUSH 03/03/23 14:46 4 mg ONCE ONE Administration Medical Decision Making Lab Data 03/03/23 11:04 03/03/23 11:46 Labs: Lab Results 03/03/23 03/03/23 Range/Units 11:04 11:46 WBC 14.7 H (4.8-10.8) X10*3/uL RBC 5.48 (4.60-5.80) X10*6/uL Hgb 16.4 (14.0-18.0) g/dl Hct 47.6 (42.0-52.0) % MCV 86.9 (80.0-98.0) fL MCH 29.9 (27.0-33.0) pg MCHC 34.5 (31.0-36.0) g/dl RDW 13.0 (11.0-16.0) % Plt Count 183 (160-400) X10*3/uL MPV 10.8 (9.4-12.4) fL Immature Gran % (Auto) 0.7 H (0.0-0.4) % Neut % (Auto) 83.7 H (45-73) % Lymph % (Auto) 7.1 L (20-40) % [place] % (Auto) 7.4 (2-11) % Eos % (Auto) 0.7 (0-4) % Baso % (Auto) 0.4 (0-2) % Lymph # (Auto) 1.0 L (1.2-4.9) X10*3/uL [place] # (Auto) 1.1 (0.1-1.2) X10*3/uL Eos # (Auto) 0.1 (0.0-0.4) X10*3/uL Baso # (Auto) 0.1 (0.0-0.2) X10*3/uL Abs Immat Gran (auto) 0.11 H (0.00-0.03) X10*3/uL Absolute Neuts (auto) 12.3 H (2.0-8.3) x10*3/uL Absolute Nucleated RBC 0.000 (0.0-0.012) X10*3/uL Nucleated RBC % (auto) 0.0 (0.0-0.2) /100WBC Sodium 143 (135-145) mmol/L Potassium 3.9 (3.3-5.1) mmol/L Chloride 108 (96-108) mmol/L Carbon Dioxide 26 (22-29) mmol/L Anion Gap 13 (12-20) BUN 17 H (9-16) mg/dL Creatinine 0.94 (0.5-1.4) mg/dL Estim Creat Clear Calc 141.1 Estimated GFR > 60 Random Glucose 89 (60-115) mg/dL Calcium 8.8 (8.4-10.2) mg/dL Total Bilirubin 1.2 H (0.0-1.0) mg/dL AST 42 H (5-37) U/L ALT 39 (0-40) U/L Alkaline Phosphatase 105 (39-117) U/L Total Protein 7.3 (6.5-8.0) g/dL Albumin 4.5 (3.5-5.0) g/dL Lipase 15 (8-78) U/L Discharge Plan Discharge Clinical Impression: Abdominal pain, Gastroenteritis Patient Disposition: Home, Self-Care Additional Instructions: no worrisome findings on CT scan Labs showed mildly elevated liver tests so in several weeks your doctor may want a repeat the test to make sure everything is back to normal Use Zofran if needed for nausea, Imodium may help with the diarrhea Most important drink plenty of fluids Return to the ER any time any worse condition or any concerns Prescriptions: New famotidine [Pepcid] 20 mg tablet 20 mg PO DAILY PRN (Reason: burning pain) Qty: 10 0RF ondansetron HCl 4 mg tablet 4 mg PO Q6H PRN (Reason: nausea and vomiting) Qty: 14 0RF loperamide [Imodium A-D] 2 mg capsule 2 mg PO Q4H PRN (Reason: loose stool) Qty: 14 0RF Rx Instructions: administer after each loose stool until symptoms controlled; do not exceed 8 mg per 24 hrs Stand Alone Forms: Work/School Release Interventions: ED Discharge Assessment Last Done: 03/03/23 15:19 Discharge Date/Time: 03/03/23 15:20
[2023-03-03] MEDS: ondansetron HCL 4 MG/2 ML VIAL IVPUSH ×2 (11:06→14:50)
[2023-03-03] MEDS: 0.9 % Sodium Chloride 1,000 ML 999 ML IV (11:06)
[2023-03-03 11:10] LABS: MANUAL DIFF FLAG NO
[2023-03-03 11:11] LABS: Basophils Absolute Auto 0.1 X10*3/uL (0.0-0.2); Basophils Percent Auto 0.4 % (0-2); Eosinophils Absolute Auto 0.1 X10*3/uL (0.0-0.4); Eosinophils Percent Auto 0.7 % (0-4); Hematocrit 47.6 % (42.0-52.0); Hemoglobin 16.4 g/dl (14.0-18.0); Imm Gran Abs Auto 0.11 X10*3/uL (0.00-0.03); Imm Gran Pct Auto 0.7 % (0.0-0.4); Lymphocytes Percent Auto 7.1 % (20-40); Mean Corpuscular HGB Conc 34.5 g/dl (31.0-36.0); Mean Corpuscular Hemoglobin 29.9 pg (27.0-33.0); Mean Corpuscular Volume 86.9 fL (80.0-98.0); Mean Platelet Volume 10.8 fL (9.4-12.4); Monocytes Absolute Auto 1.1 X10*3/uL (0.1-1.2); Monocytes Percent Auto 7.4 % (2-11); Neutrophils Absolute Auto 12.3 x10*3/uL (2.0-8.3); Neutrophils Percent Auto 83.7 % (45-73); Platelet Count 183 X10*3/uL (160-400); Red Blood Count 5.48 X10*6/uL (4.60-5.80); White Blood Count 14.7 X10*3/uL (4.8-10.8)
--- NOTE | 2023-03-03 11:26 | PC.NURSE ---
Patient complaining of abdominal pain with N/V that started this morning after drinking orange juice. Patient states that nothing since then has been making it better or worse. Patient otherwise well appearing with no s/s of distress noted.
[2023-03-03 12:04] LABS: Anion Gap 13 (12-20)
[2023-03-03 12:09] LABS: Alanine Aminotransferase 39 U/L (0-40); Albumin Level 4.5 g/dL (3.5-5.0); Alkaline Phosphatase 105 U/L (39-117); Aspartate Amino Transferase 42 U/L (5-37); Bilirubin Total 1.2 mg/dL (0.0-1.0); Blood Urea Nitrogen 17 mg/dL (9-16); Calcium 8.8 mg/dL (8.4-10.2); Carbon Dioxide 26 mmol/L (22-29); Chloride 108 mmol/L (96-108); Creatinine Clr Calc Pharmacy 141.1; Estimated Glomerular Filt Rate > 60; Glucose Random 89 mg/dL (60-115); Lipase 15 U/L (8-78); Potassium 3.9 mmol/L (3.3-5.1); Sodium 143 mmol/L (135-145); Total Protein 7.3 g/dL (6.5-8.0)
--- NOTE | 2023-03-03 12:15 | PC.NURSE ---
Patient resting on stretcher watching videos on phone. Patient states that his nausea has gotten better but still has some pain in his abdomen.
[2023-03-03] MEDS: iohexoL 350 MG/ML 100 ML INFUS..BTL IV (12:46)
[2023-03-03 15:18] VITALS: BP 111/61; PULSE 99; RESP 16; O2SAT 100
== END 2023-03-03 15:20 | disposition home or self-care (01) ==
PROVIDERS: Physician Assistant; Emergency Provider Emergency Medicine; PCP Internal Medicine
DX: K52.9 Noninfective gastroenteritis and colitis, unspecified (principal); R10.13 Epigastric pain; R11.2 Nausea with vomiting, unspecified
CPT/HCPCS: 36415; 74177; 80053; 83690; 85025; 96361; 96374; 96376; 99284; J2405; Q9967

== ENCOUNTER 2024-03-11 16:12 | Emergency (ER) | payer OTHER, SELFPAY ==
--- NOTE | ~2024-03-11 | XR_ITS ---
EXAMINATION: XR THORACIC SPINE CLINICAL INFORMATION: Upper back pain COMPARISON: None available. TECHNIQUE: 3 views of the thoracic spine were obtained. FINDINGS: There is no fracture or bone destruction seen and the vertebral alignment is normal. There is no disc space narrowing. There is no abnormality of the paraspinal soft tissues. XR/XR thoracic spine 3V IMPRESSION: Unremarkable examination.
--- NOTE | 2024-03-11 16:37 | ED_ITS ---
HPI - Back Pain/Injury General Chief Complaint: Back Pain/Injury Stated Complaint: upper back pain Time Seen by Provider: 03/11/24 18:35 Source: patient Mode of arrival: ambulatory Limitations: no limitations History of Present Illness ED Provider: Lo Cardenas PA-C HPI Narrative: 23 yo male presents to the ER for evaluation of 10/10 upper back pain that started when he woke up 4 days ago. Described as pins and needles and something stabbing me in the middle of my upper back 1000 times. No associated SOB or chest pain. No rash on back. he states the pain is worse when he moves his right arm. no neck pain or headache. he has not taken any medications for the pain. MD elicited complaint: back pain Onset (ago): day(s) (4) Timing: constant Severity: severe Quality: stabbing and tingling Location: right upper back and left upper back Radiation: none Exacerbating factors: movement Relieving factors: none Context: unknown Associated symptoms: denies other symptoms Related Data Previous Rx's ?Medication ?Instructions ?Recorded famotidine 20 mg tablet (Pepcid) 20 mg PO DAILY PRN burning pain 03/03/23 #10 tabs loperamide 2 mg capsule (Imodium 2 mg PO Q4H PRN loose stool #14 03/03/23 A-D) caps ondansetron HCl 4 mg tablet 4 mg PO Q6H PRN nausea and 03/03/23 vomiting #14 tabs cyclobenzaprine 10 mg tablet 10 mg PO TID PRN muscle spasm #10 03/11/24 tabs ibuprofen 600 mg tablet 600 mg PO Q8H PRN pain #10 tabs 03/11/24 lidocaine 5 % topical patch 1 patch topical DAILY #15 ea 03/11/24 Allergies Allergy/AdvReac Type Severity Reaction Status Date / Time No Known Allergies Allergy Verified 03/11/24 16:39 Review of Systems 2 Review of Systems: Yes all other systems are reviewed and are negative PMFSH Past Medical History Medical History Heart murmur Family History Family History Father No problems noted. Mother HTN (hypertension) Social History Social History Housing: Apartment Alcohol intake: never Patient Tobacco Use Status: Never used Tobacco e-Cigarette/Vaping Use: Never Used Second Hand Smoke Exposure: No Advance Directives: No Advance Directives Information Provided: No Current occupational status: employed Cognitive needs: No Hearing needs: No Vision needs: No Physical Exam 2 Vital Signs: Vital Signs: Last Vital Signs Temp 97.6 F 03/11/24 19:03 Pulse 59 03/11/24 19:03 Resp 18 03/11/24 19:03 BP 136/73 03/11/24 19:03 Pulse Ox 99 03/11/24 19:03 O2 Del Method Room Air 03/11/24 19:03 BMI result Body Mass Index 31.0 Appearance: Alert. Oriented X3. No acute distress. Head: normocephalic, atraumatic. Eyes: Pupils equal, round and reactive to light. ENT: Pharynx normal. No tonsillar swelling or exudate. Neck: Normal inspection. Neck supple. CVS: Normal heart rate and rhythm. Pulses normal. Respiratory: No respiratory distress. Breath sounds normal. Abdomen: Soft and nontender. +BS x4 Back: normal inspection. nontender soft tissues of the upper back. nontender midline spine. Skin: Skin warm and dry. Normal skin color. Normal skin turgor. No rashes. Extremities: No lower extremity edema. No joint swelling. normal ROM of bilateral UE. Neuro/psych: Oriented X 3. No motor deficit. No sensory deficit. CN II-XII intact. Normal speech and cognition. Medications Administered Discontinued Medications Generic Name Dose Route Start Last Admin Trade Name Freq PRN Reason Stop Dose Admin Ketorolac Tromethamine 30 mg 03/11/24 18:43 03/11/24 18:58 Ketorolac Tromethamine 30 Mg/Ml Vial IM 03/11/24 18:44 30 mg ONCE ONE Administration Medical Decision Making Medical Decision Making [facility] Narrative: 23 yo male presenting to the ER for evaluation of upper back pain described as pins and needles and stabbing. no associated SOB or chest pain labx and XR are unremarkable today. most likely msk pain. will start nsaid and muscle relaxer. stable for d/c home Differential Diagnosis Differential Diagnoses: The differential diagnosis associated with the presentation includes muscle spasm, muscle strain, cervical radiculopathy, shingles Lab Data [facility] Lab Attestation statement: I reviewed the patient's lab results. no metabolic derangement 03/11/24 16:51 03/11/24 16:51 Labs: Lab Results 03/11/24 Range/Units 16:51 WBC 9.2 (4.8-10.8) X10*3/uL RBC 5.49 (4.60-5.80) X10*6/uL Hgb 16.5 (14.0-18.0) g/dl Hct 46.6 (42.0-52.0) % MCV 84.9 (80.0-98.0) fL MCH 30.1 (27.0-33.0) pg MCHC 35.4 (31.0-36.0) g/dl RDW 12.7 (11.0-16.0) % Plt Count 207 (160-400) X10*3/uL MPV 11.7 (9.4-12.4) fL Immature Gran % (Auto) 0.7 H (0.0-0.4) % Neut % (Auto) 66.3 (45-73) % Lymph % (Auto) 23.5 (20-40) % Emery % (Auto) 7.6 (2-11) % Eos % (Auto) 1.2 (0-4) % Baso % (Auto) 0.7 (0-2) % Lymph # (Auto) 2.2 (1.2-4.9) X10*3/uL Emery # (Auto) 0.7 (0.1-1.2) X10*3/uL Eos # (Auto) 0.1 (0.0-0.4) X10*3/uL Baso # (Auto) 0.1 (0.0-0.2) X10*3/uL Abs Immat Gran (auto) 0.06 H (0.00-0.03) X10*3/uL Absolute Neuts (auto) 6.1 (2.0-8.3) x10*3/uL Absolute Nucleated RBC 0.000 (0.0-0.012) X10*3/uL Nucleated RBC % (auto) 0.0 (0.0-0.2) /100WBC Sodium 140 (135-145) mmol/L Potassium 3.8 (3.3-5.1) mmol/L Chloride 107 (96-108) mmol/L Carbon Dioxide 24 (22-29) mmol/L Anion Gap 13 (12-20) BUN 11 (9-16) mg/dL Creatinine 1.13 (0.5-1.4) mg/dL Estim Creat Clear Calc 113.8 Estimated GFR > 60 Random Glucose 87 (60-115) mg/dL Calcium 10.2 D (8.4-10.2) mg/dL Magnesium 2.2 (1.6-2.6) mg/dL Independent Interpretation I performed an independent interpretation of an: Plain X-Ray Interpretation: no acute fx, agree w/ read Radiology Impression Discussion of test interpretation with radiology: I have reviewed the radiologist's reading. Radiologist Impression: EXAMINATION: XR THORACIC SPINE CLINICAL INFORMATION: Upper back pain COMPARISON: None available. TECHNIQUE: 3 views of the thoracic spine were obtained. FINDINGS: There is no fracture or bone destruction seen and the vertebral alignment is normal. There is no disc space narrowing. There is no abnormality of the paraspinal soft tissues. XR/XR thoracic spine 3V IMPRESSION: Unremarkable examination. External Record Review External record reviewed: Outpatient record and Prior outpatient labs Prescription Management I considered prescription management with: Pain Medication Critical Care Time Critical Care Time Critical Care Time: No Discharge Plan Discharge Clinical Impression: Acute upper back pain Patient Disposition: Home, Self-Care Instructions: Back Pain (ED) Additional Instructions: Your x-rays and lab workup are unremarkable. Your pain is most likely due to muscle strain and spasm. Use ice several times per day for 20 minutes at a time for the next 48 hours and then change to heat. Take medications as prescribed to help with pain and discomfort. Follow up with your Primary Care Doctor this week. If you develop new or worsening symptoms call 911 or come back to the ER for further evaluation. Prescriptions: New cyclobenzaprine 10 mg tablet 10 mg PO TID PRN (Reason: muscle spasm) Qty: 10 0RF lidocaine 5 % adhesive patch,medicated 1 patch topical DAILY Qty: 15 0RF Rx Instructions: leave on most painful area for up to 12 hrs ibuprofen 600 mg tablet 600 mg PO Q8H PRN (Reason: pain) Qty: 10 0RF No Action famotidine [Pepcid] 20 mg tablet 20 mg PO DAILY PRN (Reason: burning pain) Qty: 10 0RF ondansetron HCl 4 mg tablet 4 mg PO Q6H PRN (Reason: nausea and vomiting) Qty: 14 0RF loperamide [Imodium A-D] 2 mg capsule 2 mg PO Q4H PRN (Reason: loose stool) Qty: 14 0RF Rx Instructions: administer after each loose stool until symptoms controlled; do not exceed 8 mg per 24 hrs Stand Alone Forms: Work/School Release Interventions: ED Discharge Assessment Last Done: 03/11/24 19:03 Discharge Date/Time: 03/11/24 19:04 Print Language: Irish
[2024-03-11 16:38] VITALS: BP 149/94; PULSE 69; RESP 16; TEMP 36.8; O2SAT 99; BMI 31.0
[2024-03-11 16:54] LABS: MANUAL DIFF FLAG NO
[2024-03-11 17:08] LABS: Anion Gap 13 (12-20); Blood Urea Nitrogen 11 mg/dL (9-16); Calcium 10.2 mg/dL (8.4-10.2); Carbon Dioxide 24 mmol/L (22-29); Chloride 107 mmol/L (96-108); Creatinine Clr Calc Pharmacy 113.8; Estimated Glomerular Filt Rate > 60; Glucose Random 87 mg/dL (60-115); Magnesium 2.2 mg/dL (1.6-2.6); Potassium 3.8 mmol/L (3.3-5.1); Sodium 140 mmol/L (135-145)
[2024-03-11 17:17] LABS: Basophils Absolute Auto 0.1 X10*3/uL (0.0-0.2); Basophils Percent Auto 0.7 % (0-2); Eosinophils Absolute Auto 0.1 X10*3/uL (0.0-0.4); Eosinophils Percent Auto 1.2 % (0-4); Hematocrit 46.6 % (42.0-52.0); Hemoglobin 16.5 g/dl (14.0-18.0); Imm Gran Abs Auto 0.06 X10*3/uL (0.00-0.03); Imm Gran Pct Auto 0.7 % (0.0-0.4); Lymphocytes Absolute Auto 2.2 X10*3/uL (1.2-4.9); Lymphocytes Percent Auto 23.5 % (20-40); Mean Corpuscular HGB Conc 35.4 g/dl (31.0-36.0); Mean Corpuscular Hemoglobin 30.1 pg (27.0-33.0); Mean Corpuscular Volume 84.9 fL (80.0-98.0); Mean Platelet Volume 11.7 fL (9.4-12.4); Monocytes Absolute Auto 0.7 X10*3/uL (0.1-1.2); Monocytes Percent Auto 7.6 % (2-11); Neutrophils Absolute Auto 6.1 x10*3/uL (2.0-8.3); Neutrophils Percent Auto 66.3 % (45-73); Platelet Count 207 X10*3/uL (160-400); Red Blood Count 5.49 X10*6/uL (4.60-5.80); Red Cell Distribution Width 12.7 % (11.0-16.0); White Blood Count 9.2 X10*3/uL (4.8-10.8)
--- OUTSIDE RECORDS SUMMARY | 2024-03-11 18:44 | XMS_ITS | Continuity of Care Document ---
Author Organization [facility] Address [address] [place] [id number]- Care Team Providers Care Deputy Sheriff Custody Name Role Phone Dacia Bolivar MD Primary Care Physician [phone] Encounter [facility] Date(s): 11/02/22 - 12/02/22 [facility] [address] [place] [address]- Allergies, Adverse Reactions, Alerts Substance Reaction Severity Status penicillin Active Patient Care team information Care Team Personnel Name: Dacia Bolivar MD Position: [facility] General Pediatrics MD Member Role: PCP Address: Address: [address] [facility] [place] [address]- Care Team Related Persons Name: GUERA ATKINSON Address: home [address] [place] [id number]
--- OUTSIDE RECORDS SUMMARY | 2024-03-11 18:44 | XMS_ITS | Continuity of Care Document ---
Author Organization [facility] Address [address] [place] [id number]- Care Team Providers Care Donor Processor Name Role Phone Dacia Bolivar MD Primary Care Physician Encounter [facility] Date(s): 02/01/24 - 03/02/24 [facility] [address] [place] [address]- Attending Physician: Ravi Sequeira Admitting Physician: AdmRavi carlson Referring Physician: tr [id number] Allergies, Adverse Reactions, Alerts Substance Reaction Severity Status penicillin Active Patient Care team information Care Team Personnel Name: Dacia Bolivar MD Position: [facility] Physician - Pediatrics Member Role: PCP Address: Address: [address] [facility] [place] [address]- Care Team Related Persons Name: GUERA ATKINSON Address: home [address] [place] [address]
--- OUTSIDE RECORDS SUMMARY | 2024-03-11 18:44 | XMS_ITS | Continuity of Care Document ---
Author Organization [facility] Address [address] [place] [address]- Care Team Providers Care President [employer] Name Role Phone Dacia Bolivar MD Primary Care Physician [phone] Encounter [facility] R [id number] Date(s): 12/09/23 - 03/02/24 [facility] [address] [place] [address]- Attending Physician: Singh Amador MD Admitting Physician: Singh Amador MD Referring Physician: Singh Amador MD Allergies, Adverse Reactions, Alerts Substance Reaction Severity Status penicillin Active Patient Care team information Care Team Personnel Name: Dacia Bolivar MD Position: [facility] Physician - Pediatrics Member Role: PCP Address: Address: [address] [facility] [place] [address]- Care Team Related Persons Name: GUERA ATKINSON Address: home [address] [place] [address]
--- OUTSIDE RECORDS SUMMARY | 2024-03-11 18:44 | XMS_ITS | Continuity of Care Document ---
Author Organization [facility] Address [address] [place] [address]- Care Team Providers Care Mechanical Facilities Technician Name Role Phone Dacia Bolivar MD Primary Care Physician [phone] Encounter [facility] Date(s): 11/25/22 - 12/25/22 [facility] [address] [place] [address]- Allergies, Adverse Reactions, Alerts Substance Reaction Severity Status penicillin Active Patient Care team information Care Team Personnel Name: Dacia Bolivar MD Position: [facility] General Pediatrics Member Role: PCP Address: Address: [address] [facility] [place] [address]- Care Team Related Persons Name: GUERA ATKINSON Address: home [address] [place] [address]
[2024-03-11] MEDS: Ketorolac Tromethamine 30 MG/ML VIAL IM (18:58)
[2024-03-11 19:03] VITALS: BP 136/73; PULSE 59; RESP 18; TEMP 36.4; O2SAT 99
== END 2024-03-11 19:04 | disposition home or self-care (01) ==
PROVIDERS: Physician Assistant; Emergency Provider Student in an Organized Health Care Education/Training Program; PCP Internal Medicine
DX: M54.6 Pain in thoracic spine (principal)
CPT/HCPCS: 36415; 72072; 80048; 83735; 85025; 96372; 99283; 99284; J1885

== ENCOUNTER 2024-08-07 09:20 | Outpatient (AMB) | payer OTHER, SELFPAY ==
--- NOTE | 2024-08-07 09:22 | MHC.PC.OV ---
Vital Signs 08/07/24 09:23 Height 5 ft 9 in Weight 236 lb BMI 34.8 BP 114/82 Blood Pressure Location Lt brachial Position Sitting Pulse 65 Pulse Source Pulse Oximeter Pulse Oximetry (%) 97 Oxygen Delivery Method Room Air Intake Visit Reasons: PE Allergies No Known Allergies Allergy (Verified 08/07/24 09:23) Medication List - Last Reconciled 08/07/24 by Gricel Barreto MD Tobacco use date assessed: 08/07/24 Dental Screening Dental Screen Date: 08/07/24 Did you have a dental visit in the last 12 months?: No Did you have a dental problem in the last 6 months where you did not have access to dental care?: No HPI PE HPI Details 23-year-old obese male with a history of VSD coming in for follow-up. Patient had an annual exam in December 2022. Muscle relaxant prescription sent in. February 2023 ER visit for nausea vomiting diagnosis of gastroenteritis. Abdominal CT scan in 2022 showed hepatosplenomegaly with an elevated liver function tests on the blood work.PAtient did not see cardiology due to financial issues [facility] Medical History (Updated 08/07/24 @ 09:42 by Gricel Barreto MD) Obesity (BMI 30.0-34.9) Heart murmur Family History (Updated 08/07/24 @ 09:46 by Gricel Barreto MD) Father No problems noted. Mother HTN (hypertension) Seizure Social History Housing: Apartment Alcohol intake: never Patient Tobacco Use Status: Never used Tobacco e-Cigarette/Vaping Use: Never Used Second Hand Smoke Exposure: No Current occupational status: employed Cognitive needs: No Hearing needs: No Vision needs: No Questionnaire PHQ-9 Over the last 2 weeks, how often have you been bothered by any of the following problems? 1. Little interest or pleasure in doing things: not at all 2. Feeling down, depressed, or hopeless: not at all 3. Trouble falling or staying asleep, or sleeping too much: more than half the days 4. Feeling tired or having little energy: not at all 5. Poor appetite or overeating: not at all 6. Feeling bad about yourself - or that you are a failure or have let yourself or your family down: not at all 7. Trouble concentrating on things, such as reading the newspaper or watching television: not at all 8. Moving or speaking so slowly that other people could have noticed. Or the opposite - being so fidgety or restless that you have been moving around a lot more than usual: not at all 9. Thoughts that you would be better off or of hurting yourself in some way: not at all Total score: 2 Depression Screening Interpretation: Negative Depression Screening Done: Yes 52167 - PHQ-9 Billing: Yes Source: Developed by Drs. Erik Stewart, Leslie Cervantes, Chance Church and colleagues, with an educational pamela from [employer]. Thrive Questionnaire Date Thrive assessed: 08/07/24 I am a: Patient What is your living situation today?: I have a steady place to live Within the past 12 months, did the food you bought not last and you didn't have the money to get more?: Often true Within the past 12 months, did you worry whether your food would run out before you got money to buy more?: Sometimes True Do you have trouble paying for medicines?: No Do you have trouble getting transportation to medical appointments?: No Do you have trouble paying your heating and electricity bill?: No Do you have trouble taking care of your child, family member or friend?: No Do you have trouble with day-to-day activities such as bathing, preparing meals, shopping, managing finances, etc.?: No Are you currently unemployed and looking for a job?: No Are you interested in more education?: No Please select the resources that you would like help with: Food Currently or been in a relationship where the following occur: No concerns reported THRIVE Score: 2 AUDIT C Alcohol Use Questionnaire (AUDIT-C) 1. How often do you have a drink containing alcohol?: Never 3. How often do you have six or more drinks on one occasion?: Never Total Score: 0 RORY-7 AMB Questionnaire RORY-7 Date RORY - 7 assessed: 08/07/24 Feeling nervous, anxious, or on edge: 0 = Not at all Not being able to stop or control worryin = Not at all Worrying too much about different things: 0 = Not at all Trouble relaxin = Not at all Being so restless that it is hard to sit still: 0 = Not at all Becoming easily annoyed or irritable: 1 = Several days Feeling afraid as if something awful might happen: 1 = Several days Total RORY-7 score (0-4 normal; 5-9 mild; 10-14 moderate; 15-21 severe): 2 Source: Developed by Drs. Erik Stewart, Leslie Cervantes, Chance Church and colleagues, with an educational pamela from [employer]. RORY-7 Assessment Billing RORY-7 Assessment Tool: RORY-7 Assessment 32163 Review of Systems Const Denies poor appetite and Denies weakness Eyes Denies no additional complaints ENT Reports Normal hearing present, Denies dizziness, Denies nasal congestion, Denies tinnitus and Denies sore throat Card Denies chest pain, Denies syncope, Denies rapid heart rate and Denies dyspnea Resp Denies cough and Denies dyspnea GI Denies change in stool character, Reports constipation, Denies diarrhea, Denies nausea and Denies vomiting Denies dysuria and Denies urinary frequency Neuro Reports Normal hearing present, Denies confusion, Denies dizziness, Denies syncope and Denies weakness Psych Denies confusion Physical exam (Primary Care) Vital Signs: Last Vital Signs Pulse 65 08/07/24 09:23 BP 114/82 08/07/24 09:23 Pulse Ox 97 08/07/24 09:23 Oxygen Delivery Method Room Air 08/07/24 09:23 BMI result Body Mass Index 34.8 Tobacco/Smoking Status: Tobacco use Status Tobacco use date assessed 08/07/24 08/07/24 09:24 Patient Tobacco Use Status Never used Tobacco 08/07/24 09:22 e-Cigarette/Vaping Use Never Used 08/07/24 09:22 PHQ-9: PHQ-9 Score PHQ-9: Total score 2 08/07/24 09:24 Depression Screening Interpretation: Negative Thrive Assessment: Date of Thrive Assessment Date Thrive assessed 08/07/24 08/07/24 09:24 Currently or been in a relationship where the following occur: No concerns reported Const General: No confusion Orientation/consciousness: No confusion HENMT Head: Yes normocephalic Ears: external ears normal and TM's normal bilaterally Face and sinus: Yes normal facial exam Mouth: moist mucous membranes Throat: Yes tonsils normal Eyes Conjunctivae: conjunctivae normal Pupils: Equal, round and reactive pupils present and Pupil accommodation reflex normal Direct Ophthalmoscopy: normal light reflex Neck Neck: No lymphadenopathy Thyroid: Thyroid normal Chest Chest palpation & inspection: normal inspection of the chest Resp Effort & Inspection: normal respiratory effort and no audible wheezes Auscultation: clear to auscultation bilaterally, no crackles, no wheezes and lung sounds not diminished Cardio Other: holosystolic murmu Rate: regular rate Rhythm: regular rhythm Heart sounds: Murmur heart sound present Peripheral pulses: radial pulses present and dorsalis pedis present GI Palpation (GI): no masses Auscultation: normal bowel sounds and normoactive bowel sounds Rectal Exam - Male: Yes deferred Skin General skin exam: no rashes or lesions noted Rashes: no rashes Neuro General: No confusion Cranial nerves: Yes Equal, round and reactive pupils present and Yes Normal hearing present Cognition (Neuro): normal cognition Gait exam (Neuro): Normal gait present Motor exam (neuro): 5/5 motor strength present throughout Deep tendon reflexes (DTR's): Right brachioradialis reflex intensity grade: 2+, Left brachioradialis reflex intensity grade: 2+, Right patellar reflex intensity grade: 2+ and Left patellar reflex intensity grade: 2+ Extrem General: No edema Coding Level of Care Code Est Pt Prev Care 18-39y(55006) Diagnoses Annual physical exam Z00.00 VSD (ventricular septal defect), perimembranous Q21.0 Ascending aorta dilatation I77.810 Obesity (BMI 30-39.9) E66.9 Hepatosplenomegaly R16.2 Additional Codes RORY-7 Assessment Billing - RORY-7 Assessment Tool: RORY-7 Assessment 27136 ([id number]) Assessment & Plan Assessment & Plan (1) Annual physical exam: Code(s): Z00.00 - Encounter for general adult medical examination without abnormal findings Category: Medical Plan: Patient is advised to eat healthy, keep well hydrated, keep active and have adequate sleep. (2) VSD (ventricular septal defect), perimembranous: Code(s): Q21.0 - Ventricular septal defect Category: Medical Plan: Continuing to monitor (3) Ascending aorta dilatation: Comment: September 2022 The left ventricular systolic function is normal. The calculated ejection fraction is 59% by biplane method. - There is mild dilatation of the sinuses of Valsalva measuring 4.30 cm and mild dilatation of the ascending aorta measuring 3.90 cm. - Small membranous VSD noted. - Consider CTA for further evaluation. Code(s): I77.810 - Thoracic aortic ectasia Category: Medical Plan: Will request for another echocardiogram and referral to Cardiology. (4) Obesity (BMI 30-39.9): Code(s): E66.9 - Obesity, unspecified Category: Medical Plan: Diet and exercise (5) Hepatosplenomegaly: Code(s): R16.2 - Hepatomegaly with splenomegaly, not elsewhere classified Category: Medical Plan: Will request for an ultrasound and blood work. Orders: Orders Complete Blood Count Auto Diff Today E66.9 - Obesity, unspecified Free T4 (Free Thyroxine) Today E66.9 - Obesity, unspecified Thyroid Stimulating Hormone Today E66.9 - Obesity, unspecified Lipid Panel Today E66.9 - Obesity, unspecified, E78.00 - Pure hypercholesterolemia, unspecified CA echo transthoracic complete Today Q21.0 - Ventricular septal defect Hepatitis B,C Profile Today R16.2 - Hepatomegaly with splenomegaly, not elsewhere classified, R79.89 - Other specified abnormal findings of blood chemistry Comprehensive Met. Panel Today R16.2 - Hepatomegaly with splenomegaly, not elsewhere classified US abdomen complete Today R16.2 - Hepatomegaly with splenomegaly, not elsewhere classified, R79.89 - Other specified abnormal findings of blood chemistry Vitamin B12 and Folate Today E66.9 - Obesity, unspecified Referrals Cardiology Referral Q21.0 - Ventricular septal defect
[2024-08-07 09:23] VITALS: BP 114/82; PULSE 65; O2SAT 97; BMI 34.8
== END 2024-08-07 11:06 | disposition home or self-care (01) ==
LOC: HO.HMCH 09:21
PROVIDERS: PCP Internal Medicine; Visit Provider Internal Medicine
DX: Z00.00 Encounter for general adult medical examination without abnormal findings (principal); I77.810 Thoracic aortic ectasia; E66.811 Obesity, class 1; Z68.34 Body mass index [BMI] 34.0-34.9, adult; Q21.0 Ventricular septal defect; R16.2 Hepatomegaly with splenomegaly, not elsewhere classified

== ENCOUNTER → 2024-08-07 09:20 | Outpatient (BNVA) | payer OTHER, SELFPAY | PROVIDERS: PCP Internal Medicine; Visit Provider Internal Medicine | DX: Z00.01 Encounter for general adult medical examination with abnormal findings (principal); Q21.0 Ventricular septal defect; I77.810 Thoracic aortic ectasia; E66.9 Obesity, unspecified; R16.2 Hepatomegaly with splenomegaly, not elsewhere classified | CPT/HCPCS: 96127; 99395 ==

== ENCOUNTER 2024-08-18 08:40 | Outpatient (REF) | payer OTHER, SELFPAY | END 2024-08-18 08:41 | disposition home or self-care (01) | LOC: HO.US 08:40 | PROVIDERS: PCP Internal Medicine; Visit Provider Internal Medicine | DX: R79.89 Other specified abnormal findings of blood chemistry (principal); R16.2 Hepatomegaly with splenomegaly, not elsewhere classified | CPT/HCPCS: 76700 ==

== ENCOUNTER → 2024-08-28 08:17 | Outpatient (REF) | payer OTHER, SELFPAY ==
--- NOTE | 2024-08-28 08:19 | CA_ITS ---
Transthoracic Echocardiogram Patient (Last, First, Middle): Poli Hoff, Gender: Male Date of : 2000 Age: 23 Procedure Date: 08/28/2024 Procedure Type: Transthoracic Echocardiogram Location: OP Height: 175.26 cm Weight: 102.06 kg BSA: 2.17 m2 Heart Rate: bpm BP: 120 / 76 mmHg Production Corrugator: WILL Referring MD: Gricel Barreto MD Symptoms: Q21.0 - Ventricular septal defect Study Quality: Adequate Conclusions: - The left ventricular systolic function is normal. The calculated ejection fraction is 62% by biplane method. - There is evidence of a small membranous ventricular septal defect. - No obvious valvular pathology seen on this study. Findings Left Ventricle Normal left ventricular cavity size. There is normal left ventricular wall thickness. The left ventricular systolic function is normal. The calculated ejection fraction is 62% by biplane method. There is no evidence of regional wall motion abnormalities. Diastolic function is normal for age. There is evidence of a small membranous ventricular septal defect. Right Ventricle Mildly increased right ventricular cavity size. There is normal right ventricular systolic function. Atria Both atria are normal in size. Aortic Valve There is a normal trileaflet aortic valve. There is no aortic valve stenosis. There is trace (trivial) aortic valve regurgitation. Mitral Valve The mitral valve appears normal. There is no mitral valve regurgitation. There is no mitral valve stenosis. Pulmonic Valve There is trace pulmonic valve regurgitation. Tricuspid Valve Normal tricuspid valve structure. There is mild tricuspid valve regurgitation. Top normal RVSP. Great Vessels The asc aorta is normal in size. Venous The inferior vena cava is mildly dilated and collapses greater than 50% with inspiration. Pericardium/Pleural There is no evidence of pericardial effusion. Prior Study Comparison No significant change compared to prior study dated: 09/18/2022. Recommendations, Care & Conclusions No obvious valvular pathology seen on this study. Measurements 2D Linear Measurements IVSd: 1.02 0.6-0.9/0.6-1.0 cm LVIDd: 5.33 3.9-5.3/4.2-5.9 cm LVIDd Index: 2.46 2.4-3.2/2.2-3.1 cm/m2 LVIDs: 3.70 2.0-3.6 cm LVPWd: 0.96 0.7-1.1 cm LA Diam: 4.00 2.7-3.8/3.0-4.0 cm LAIDs Index: 1.84 1.5-2.3 cm/m2 LV Mass: 248.77 67-162/88-224 g LV Mass Index: 114.64 43-95/49-115 g/m2 LVOT Diam: 2.40 3.0+(-)1.3 cm 2D Systolic Function EF 4C: 60.80 >55% EF 2C: 64.60 >55% EF BiP: 62.40 >55% Mitral Valve MV Pk E: 0.86 MV PK A: 0.56 MV Decel Time: 256.00 E/A: 1.50 E'Lateral: 12.70 E'Medial: 7.72 E/E' Med: 11.10 E/E' Lat: 6.70 PHT: 75.00 MVA PHT: 2.93 Decel Rankin: 3.34 Aortic Valve AoV Pk Roger: 1.12 AoV Mn Roger: 0.82 AoV VTI: 0.28 AoV Pk Grad: 5.00 Aov Mn Grad: 3.00 ISHA Cont.VTI: 3.04 LVOT LVOT Pk Roger: 0.91 LVOT Mn Roger: 0.58 LVOT VTI: 0.19 LVOT Pk Grad: 3.00 LVOT Mn Grad: 2.00 LVOT Diam: 2.40 LVOT Area: 4.52 Diastolic Function MV Pk E: 0.86 MV Pk A: 0.56 E/A: 1.50 E'Medial: 7.72 E/E' Med: 11.10 E' Laterial: 12.70 E/E' Lat: 6.70 Right Ventricle TAPSE (mm): 25.40 TVS' Roger: 12.90 Tricuspid Valve TR Pk Roger: 2.69 TR Pk Grad: 29.00 RA Press: 8.00 RVSP: 37.00 Great Vessels Aorta Sinus of Valsalva: 4.05 2.0-3.5 cm Ao Asc: 3.10 2.1-3.4 cm Shunting QP:QS: 1.00 Updated in Other Vendor System with Status of Final Odell Gonzalez MD electronically signed on 08/28/2024 10:18:50 AM with status of Final
== END ==
LOC: HO.CARD 08:17
PROVIDERS: PCP Internal Medicine; Visit Provider Internal Medicine
DX: Q21.0 Ventricular septal defect (principal)
CPT/HCPCS: 93306

== ENCOUNTER → 2024-08-28 08:19 | Outpatient (BNV) | payer OTHER, SELFPAY | PROVIDERS: PCP Internal Medicine; Visit Provider Internal Medicine | DX: Q21.0 Ventricular septal defect (principal) | CPT/HCPCS: 93306 ==

== ENCOUNTER 2024-11-14 11:26 | Outpatient (AMB) | payer OTHER, SELFPAY ==
--- NOTE | 2024-11-14 11:31 | MHC.PC.OV ---
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 Barreto 08/2024 coming in for follow up.?Patient completed abdominal ultrasound 09/2024 showing hepatic steatosis. Patient also completed echocardiogram 08/2024 showing evidence of small ventricular septal defect and normal ventricular systolic function. Patient tells us today he is feeling generally well. He denies any chest pains or shortness of breath. He has no acute concerns today. [facility], [facility] Medical History Hepatosplenomegaly Obesity (BMI 30.0-34.9) Heart murmur Surgical History No pertinent past surgical history Family History Father No problems noted. Mother HTN (hypertension) Seizure Social History Housing: Apartment Alcohol intake: never Patient Tobacco Use Status: Never used Tobacco e-Cigarette/Vaping Use: Never Used Second Hand Smoke Exposure: No service: No Current occupational status: employed Cognitive needs: No Hearing needs: No Vision needs: No Questionnaire PHQ-9 Over the last 2 weeks, how often have you been bothered by any of the following problems? 1. Little interest or pleasure in doing things: several days 2. Feeling down, depressed, or hopeless: several days 3. Trouble falling or staying asleep, or sleeping too much: nearly every day (Staying asleep) 4. Feeling tired or having little energy: several days 5. Poor appetite or overeating: more than half the days 6. Feeling bad about yourself - or that you are a failure or have let yourself or your family down: several days 7. Trouble concentrating on things, such as reading the newspaper or watching television: not at all 8. Moving or speaking so slowly that other people could have noticed. Or the opposite - being so fidgety or restless that you have been moving around a lot more than usual: not at all 9. Thoughts that you would be better off or of hurting yourself in some way: not at all Total score: 9 Depression Screening Interpretation: Positive Depression Screening Done: Yes Source: Developed by Drs. Erik Stewart, Leslie Cervantes, Chance Church and colleagues, with an educational pamela from [employer]. Thrive Questionnaire Date Thrive assessed: 11/14/24 AUDIT C Alcohol Use Questionnaire (AUDIT-C) 1. How often do you have a drink containing alcohol?: Never Total Score: 0 RORY-7 AMB Questionnaire RORY-7 Date RORY - 7 assessed: 11/14/24 Feeling nervous, anxious, or on edge: 1 = Several days Not being able to stop or control worryin = Not at all Worrying too much about different things: 0 = Not at all Trouble relaxin = Several days Being so restless that it is hard to sit still: 3 = Nearly every day Becoming easily annoyed or irritable: 3 = Nearly every day Feeling afraid as if something awful might happen: 3 = Nearly every day Total RORY-7 score (0-4 normal; 5-9 mild; 10-14 moderate; 15-21 severe): 11 Source: Developed by Drs. Erik Stewart, Chance Ortiz and colleagues, with an educational pamela from [employer]. Review of Systems Const Denies body aches, Denies chills, Denies fever(s), Denies headache(s) and Denies poor appetite Eyes Reports no additional complaints ENT Denies dizziness and Denies headache(s) Card Denies chest pain, Denies syncope, Denies edema, Denies irregular heart rhythm, Denies lightheadedness and Denies dyspnea Resp Denies cough and Denies dyspnea GI Denies abdominal pain, Denies constipation, Denies diarrhea, Denies nausea and Denies vomiting Reports no additional complaints Musc Reports no additional complaints and Denies abnormal gait Skin/Breast Reports system reviewed and no additional complaints, except as documented Neuro Denies abnormal gait, Denies dizziness, Denies syncope and Denies headache(s) Psych Reports no additional complaints Physical exam (Primary Care) Vital Signs: Last Vital Signs Temp 97.3 F 11/14/24 11:33 Pulse 70 11/14/24 11:33 BP 110/72 11/14/24 11:33 Pulse Ox 99 11/14/24 11:33 Oxygen Delivery Method Room Air 11/14/24 11:33 BMI result Body Mass Index 35.7 Tobacco/Smoking Status: Tobacco use Status Tobacco use date assessed 11/14/24 11/14/24 11:35 Patient Tobacco Use Status Never used Tobacco 11/14/24 11:35 e-Cigarette/Vaping Use Never Used 11/14/24 11:35 PHQ-9: PHQ-9 Score PHQ-9: Total score 9 11/14/24 11:40 Depression Screening Interpretation: Positive Thrive Assessment: Date of Thrive Assessment Date Thrive assessed 11/14/24 11/14/24 11:35 Const General: cooperative, healthy appearing, comfortable and no acute distress Orientation/consciousness: patient oriented x3 HENMT Head: Yes normocephalic Ears: hearing grossly normal bilaterally General nose exam: Normal external nose present Eyes General: appearance normal, both eyes and all related structures Conjunctivae: conjunctivae normal Neck Neck: Yes full ROM and Yes no lymphadenopathy Resp Effort & Inspection: normal respiratory effort Auscultation: clear to auscultation bilaterally, no crackles, no rales, no rhonchi and no wheezes Cardio Rate: regular rate Rhythm: regular rhythm Skin General skin exam: no rashes or lesions noted Neuro General: patient oriented x3 Gait exam (Neuro): Normal gait present Extrem General: Yes normal to inspection, Yes full ROM and No edema Psych Affect: normal affect Attitude: cooperative Insight: Good insight present (Psych) Judgement: Good judgement present (Psych) Coding Level of Care Code Est Pt Level 3 (97346) Diagnoses Hepatic steatosis K76.0 Obesity (BMI 30-39.9) E66.9 VSD (ventricular septal defect), perimembranous Q21.0 Ascending aorta dilatation I77.810 Assessment & Plan Assessment & Plan (1) Hepatic steatosis: Comment: September 2024 Code(s): K76.0 - Fatty (change of) liver, not elsewhere classified Category: Medical Plan: Healthy diet and regular exercise is encouraged. Continue to monitor liver labs. Reminded patient about blood work. (2) Obesity (BMI 30-39.9): Code(s): E66.9 - Obesity, unspecified Category: Medical Plan: Healthy diet and regular exercise is encouraged. (3) VSD (ventricular septal defect), perimembranous: Code(s): Q21.0 - Ventricular septal defect Category: Medical Plan: Most recent echocardiogram showing small ventricular septal defect. Referral was placed by Dr. Barreto to see Cardiology. Patient has a appointment coming up in the next few months. (4) Ascending aorta dilatation: Comment: September 2022 The left ventricular systolic function is normal. The calculated ejection fraction is 59% by biplane method. - There is mild dilatation of the sinuses of Valsalva measuring 4.30 cm and mild dilatation of the ascending aorta measuring 3.90 cm. - Small membranous VSD noted. - Consider CTA for further evaluation. Code(s): I77.810 - Thoracic aortic ectasia Category: Medical Plan: Recent echocardiogram reviewed today no comments on aorta dilation, follow up with cardiology. Plan I reminded patient about the blood work to be completed and scheduled him for his yearly exam. Any issues please reach out to the office prior to next visit. This note was constructed using voice recognition software. While every effort has been made to ensure accuracy and disability attorney, still areas may have been included sometimes these areas may affect the content or meeting of the given symptoms. Total time spent caring for the patient today was 20 minutes. This includes time spent before the visit reviewing the chart, time spent during the visit, and time spent after the visit and documentation.
[2024-11-14 11:33] VITALS: BP 110/72; PULSE 70; TEMP 36.3; O2SAT 99; BMI 35.7
== END 2024-11-14 11:51 | disposition home or self-care (01) ==
PROVIDERS: PCP Internal Medicine
DX: I77.810 Thoracic aortic ectasia (principal); E66.9 Obesity, unspecified; Z68.35 Body mass index [BMI] 35.0-35.9, adult; K76.0 Fatty (change of) liver, not elsewhere classified; Q21.0 Ventricular septal defect

== ENCOUNTER → 2024-11-14 11:26 | Outpatient (BNVA) | payer OTHER, SELFPAY | PROVIDERS: PCP Internal Medicine | DX: K76.0 Fatty (change of) liver, not elsewhere classified (principal); E66.9 Obesity, unspecified; Q21.0 Ventricular septal defect; I77.810 Thoracic aortic ectasia | CPT/HCPCS: 99212 ==

== ENCOUNTER 2024-12-27 09:21 | Outpatient (AMB) | payer OTHER, SELFPAY ==
--- NOTE | 2024-12-27 09:22 | A.OFFVIS_ITS ---
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 Has a history of small perimembranous VSD. Has been seen in pediatric clinic at [facility] around 2012 but not since then. We saw him here couple of years ago. He states that he is fine overall. He does not have any cardiac symptoms. Unlimited exercise tolerance. However, he has put on a lot of weight over these years. He is trying to actively lose the weight. [facility] Medical History (Updated 12/27/24 @ 10:49 by Odell Gonzalez MD) Obesity (BMI 30.0-34.9) Hepatosplenomegaly Heart murmur Surgical History No pertinent past surgical history Family History Father No problems noted. Mother HTN (hypertension) Seizure Social History Housing: Apartment Alcohol intake: never Patient Tobacco Use Status: Never used Tobacco e-Cigarette/Vaping Use: Never Used Second Hand Smoke Exposure: No service: No Current occupational status: employed Cognitive needs: No Hearing needs: No Vision needs: No Review of Systems Const Denies chills, Denies daytime sleepiness, Denies fatigue, Denies fever(s), Denies poor appetite, Denies snoring, Denies stops breathing during sleep, Denies weakness, Denies weight gain and Denies weight loss Eyes Denies loss of vision ENT Denies dizziness and Denies hearing loss Card Denies chest pain, Denies irregular heart rhythm, Denies claudication, Denies leg edema, Denies lightheadedness, Denies palpitations, Denies dyspnea on exertion and Denies orthopnea Resp Denies cough, Denies excessive phlegm production, Denies dyspnea on exertion, Denies snoring and Denies wheezing GI Denies abdominal pain, Denies hematochezia, Denies change in bowel habits, Denies nausea and Denies vomiting Denies dysuria and Denies urinary frequency Musc Denies arthralgias, Denies muscle weakness, Denies numbness and Denies other Skin/Breast Denies nail changes and Denies rash Neuro Denies Abnormal speech present, Denies dizziness, Denies loss of vision, Denies memory loss, Denies numbness and Denies weakness Psych Denies depression and Denies memory loss Endo Denies fatigue and Denies palpitations Maninder/Lymph Denies easy bruising Aller/Immun Denies wheezing Physical Exam Vital Signs: Last Vital Signs Pulse 67 12/27/24 09:26 BP 112/76 12/27/24 09:26 BMI result Body Mass Index 35.9 Const General: comfortable and no acute distress Orientation/consciousness: patient oriented x3 HEENT Other: Unremarkable Head: Yes normal to inspection Neck Neck: Yes normal visual inspection Chest Chest palpation & inspection: normal inspection of the chest Resp Auscultation: clear to auscultation bilaterally Cardio Palpation: normal PMI Heart sounds: Murmur heart sound present systolic holo and III/ GI Palpation (GI): Soft to palpation Back/Spine/Pelvis Other: unremarkable Skin General skin exam: no rashes or lesions noted Neuro General: patient oriented x3 Speech: No Abnormal speech present Extrem General: Yes normal to inspection Psych Mental Status: mental status grossly normal Office Procedures EKG Details: EKG with underlying sinus rhythm at 67/Min; right superior axis; incomplete right bundle-branch block pattern and possible RVH[place]. [id number], Complete Assessment & Plan Assessment & Plan (1) VSD (ventricular septal defect), perimembranous: Code(s): Q21.0 - Ventricular septal defect Category: Medical Plan: History of small perimembranous VSD. Seems stable on echocardiogram. Preserved LVEF at 60%. Mild increase in right ventricular size but he is also clearly obese and that plays a role. Trivial aortic regurgitation. No specific management for now. We will continue to monitor. (2) Ascending aorta dilatation: Comment: Code(s): I77.810 - Thoracic aortic ectasia Category: Medical Plan: In the recent echocardiogram, sinus of Valsalva measures 4 cm. Ascending aorta 3.1 cm. In the chest CTA from 2022, aortic sinuses measures 4 cm. No specific interventions. (3) Obesity: Code(s): E66.9 - Obesity, unspecified Category: Medical Plan: Per weight data, around 45 lb weight gain in the last 4 years. We discussed about this today. He must lose weight to reduce cardiovascular risk in the long run. Plan Follow-up with repeat echocardiogram in about 2 years. If stable, we can monitor him less frequently. In the interim, he will call us with any concerns. Coding Level of Care Code Est Pt Level 3 (40245) Diagnoses VSD (ventricular septal defect), perimembranous Q21.0 Ascending aorta dilatation I77.810 Obesity E66.9 CPT Codes EKG - CPT: [id number], Complete ([id number])
[2024-12-27 09:26] VITALS: BP 112/76; PULSE 67; BMI 35.9
== END 2024-12-27 09:44 | disposition home or self-care (01) ==
LOC: HO.HCS 09:21
PROVIDERS: PCP Internal Medicine; Visit Provider Internal Medicine
DX: Q21.0 Ventricular septal defect (principal); I77.810 Thoracic aortic ectasia; E66.9 Obesity, unspecified
CPT/HCPCS: 93010; 99213

== ENCOUNTER → 2024-12-27 09:21 | Outpatient (BNVA) | payer OTHER, SELFPAY | PROVIDERS: PCP Internal Medicine; Visit Provider Internal Medicine | DX: Q21.0 Ventricular septal defect (principal); I77.810 Thoracic aortic ectasia; E66.9 Obesity, unspecified; R94.31 Abnormal electrocardiogram [ECG] [EKG]; I45.19 Other right bundle-branch block | CPT/HCPCS: 93005; 99212 ==

== ENCOUNTER 2025-03-28 15:11 | Emergency (ER) | payer BC, SELFPAY ==
--- NOTE | ~2025-03-28 | CT_ITS ---
CLINICAL HISTORY: Migraine with left arm weakness CT head without contrast Comparison: None provided Findings: No intra-axial mass, midline shift, hydrocephalus, or acute hemorrhage. No significant atrophy-like change or white matter disease. The visualized paranasal sinuses and mastoid air cells are normal. The orbits are within normal limits. There is no acute fracture. IMPRESSION: 1. No acute intracranial findings. This document has been electronically signed by: Clara Wilcox MD on 03/28/2025 17:35:26
[2025-03-28 15:15] VITALS: BP 147/85; PULSE 71; RESP 16; TEMP 36.4; O2SAT 96; BMI 34.8
--- NOTE | 2025-03-28 15:15 | ED_ITS ---
HPI - General Adult General Chief complaint: Neuro Symptoms/Deficit Stated complaint: Left arm Numb multi hour Time Seen by Provider: 03/28/25 16:22 Source: patient Mode of arrival: ambulatory Limitations: no limitations History of Present Illness ED Provider: HPI narrative: Patient' his 24 years old with history of migraine was at work around 12:45 p.m.. noticed tingling pain left arm with a headache feel that they can not move his left arm because of the pain no other extremity weakness no vomiting patient did have headache earlier patient ambulatory as such. No neck pain patient does have history of VSD Related Data Previous Rx's ?Medication ?Instructions ?Recorded sczybvdnvj-uyyoymrvaxcex-ozzhoixy 1 tab PO Q6H PRN hae adace #20 tabs 03/28/25 50 mg-325 mg-40 mg tablet ibuprofen 600 mg tablet 600 mg PO Q6H PRN fever or p ain 03/28/25 #30 tabs Allergies Allergy/AdvReac Type Severity Reaction Status Date / Time No Known Allergies Allergy Verified 03/28/25 15:18 Review of Systems 2 Review of Systems: Yes all other systems are reviewed and are negative [facility] Past Medical History Medical History Obesity (BMI 30.0-34.9) Hepatosplenomegaly Heart murmur Surgical History No pertinent past surgical history Family History Family History Father No problems noted. Mother HTN (hypertension) Seizure Social History Social History Housing: Apartment Alcohol intake: never Patient Tobacco Use Status: Never used Tobacco e-Cigarette/Vaping Use: Never Used Second Hand Smoke Exposure: No service: No Current occupational status: employed Cognitive needs: No Hearing needs: No Vision needs: No Physical Exam ED Vital Signs: Vital Signs - 24 hr 03/28/25 15:15 03/28/25 15:48 03/28/25 15:55 Temperature 97.5 F 98.2 F Pulse Rate 71 72 71 Respiratory Rate 16 16 16 Blood Pressure 147/85 H 136/71 117/74 Pulse Oximetry 96 98 97 Oxygen Delivery Method Room Air Room Air Room Air 03/28/25 18:00 03/28/25 19:33 Temperature 98.2 F Pulse Rate 67 67 Respiratory Rate 16 16 Blood Pressure 101/62 101/62 Pulse Oximetry 98 98 Oxygen Delivery Method Room Air Room Air BMI result Body Mass Index 34.8 Appearance: Alert. Oriented X3. No acute distress. Eyes: PERRLA, No Nystagmus ENT: Pharynx normal. Oral Mucosa moist Neck: Normal inspection. Neck supple. CVS: Normal heart rate and rhythm. Pulses normal. Respiratory: No respiratory distress. Equal air entry bilateral, no wheezing/rales/rhonchi Abdomen: Soft and nontender. Bowel sounds are present, no mass palpable, no CVA tenderness Skin: Skin warm and dry. Normal skin color. Normal skin turgor. Extremities: No lower extremity edema. No calf tenderness Neuro: Oriented X 3. Diffuse tenderness left upper extremity No sensory deficit.No cerebellar signs , cranial nerves II-XII intact DTR 2+ NIH Stroke Scale Time: 17:00 Level of Consciousness: Alert Level of Consciousness Questions: Answers both questions correctly Level of Consciousness Commands: Performs both tasks correctly Best Gaze: Normal Visual: No visual loss Facial Palsy: Normal Motor Arm (Right): No drift Motor Arm (Left): No drift Motor Leg (Right): No drift Motor Leg (Left): No drift Limb Ataxia: Absent Sensory: Normal Best Language: No aphasia Dysarthia: Normal Extinction and Inattention: No abnormality Score: 0 Course Course Course Narrative: This is a rapid medical exam performed by Josey Marino NP: Additional HPI, ROS, PE not included below will be deferred to primary provider. Patient is a 24-year-old male with history of ventricular septal defect, ascending aorta dilatation, hepatic steatosis presenting with complaint of left arm numbness and some pain to forearm. Reports that he also feels as though he is having difficulty getting his words out, feels like he's speaking but he's not. Patient also evaluated by Dr. Wing who does not feel patient needs to be activated as a stroke alert. Symptoms began around 1245-1:00. Plan: basic labs Medications Administered Discontinued Medications Generic Name Dose Route Start Last Admin Trade Name Freq PRN Reason Stop Dose Admin Ibuprofen 600 mg 03/28/25 19:14 03/28/25 19:31 Ibuprofen 600 Mg Tablet PO 03/28/25 19:15 600 mg ONCE ONE Administration Medical Decision Making Medical Decision Making [facility] Narrative: Patient with left upper extremity pain and weakness with a history of migraine headache patient is able to move his left upper extremity but because the pain unable to make fist no focal deficit noticed no dermatomal sensory deficit noticed likely patient has a migraine headache with neurological will get CP to rule out local muscular cause Differential Diagnosis Differential Diagnoses: The differential diagnosis associated with the presentation includes Migraine headache/musculoskeletal pain/CVA Lab Data [facility] Lab Attestation statement: I reviewed the patient's lab results. 03/28/25 15:36 03/28/25 15:36 Labs: Lab Results 03/28/25 Range/Units 15:36 WBC 10.8 (4.8-10.8) X10*3/uL RBC 5.26 (4.60-5.80) X10*6/uL Hgb 15.5 (14.0-18.0) g/dl Hct 44.7 (42.0-52.0) % MCV 85.0 (80.0-98.0) fL MCH 29.5 (27.0-33.0) pg MCHC 34.7 (31.0-36.0) g/dl RDW 13.1 (11.0-16.0) % Plt Count 201 (160-400) X10*3/uL MPV 11.9 (9.4-12.4) fL Immature Gran % (Auto) 0.6 H (0.0-0.4) % Neut % (Auto) 68.5 (45-73) % Lymph % (Auto) 23.5 (20-40) % Parmer % (Auto) 6.3 (2-11) % Eos % (Auto) 0.6 (0-4) % Baso % (Auto) 0.5 (0-2) % Lymph # (Auto) 2.6 (1.2-4.9) X10*3/uL Parmer # (Auto) 0.7 (0.1-1.2) X10*3/uL Eos # (Auto) 0.1 (0.0-0.4) X10*3/uL Baso # (Auto) 0.1 (0.0-0.2) X10*3/uL Abs Immat Gran (auto) 0.07 H (0.00-0.03) X10*3/uL Absolute Neuts (auto) 7.4 (2.0-8.3) x10*3/uL Absolute Nucleated RBC 0.000 (0.0-0.012) X10*3/uL Nucleated RBC % (auto) 0.0 (0.0-0.2) /100WBC Sodium 142 (135-145) mmol/L Potassium 3.8 (3.3-5.1) mmol/L Chloride 105 (96-108) mmol/L Carbon Dioxide 27 (22-29) mmol/L Anion Gap 14 (12-20) BUN 10 (9-16) mg/dL Creatinine 1.09 (0.5-1.4) mg/dL Estim Creat Clear Calc 123.7 Estimated GFR > 60 Random Glucose 82 (60-115) mg/dL Calcium 9.7 (8.4-10.2) mg/dL Total Bilirubin 0.9 (0.0-1.0) mg/dL AST 36 (5-37) U/L ALT 32 (0-40) U/L Alkaline Phosphatase 110 (39-117) U/L Total Creatine Kinase 330 H (38-174) U/L Total Protein 7.8 (6.5-8.0) g/dL Albumin 5.1 H (3.5-5.0) g/dL Independent Interpretation I performed an independent interpretation of an: CT Scan Radiology Impression Discussion of test interpretation with radiology: I have reviewed the radiologist's reading. Radiologist Impression: No acute Discharge Plan Discharge Clinical Impression: Musculoskeletal arm pain, Headache, migraine Patient Disposition: Home, Self-Care Instructions: Migraine Headache (ED), Arm Pain (ED) Additional Instructions: You have musculoskeletal pain in left arm drink plenty of fluids pain medication as prescribed Your symptoms could be from migraine headache Take medication for migraine as prescribed Follow with your PCP/neurologist Prescriptions: New mvrutiydog-efnbybizqcjdz-wdan 50-325-40 mg tablet 1 tab PO Q6H PRN (Reason: haeadace) Qty: 20 0RF ibuprofen 600 mg tablet 600 mg PO Q6H PRN (Reason: fever or pain) Qty: 30 0RF Stand Alone Forms: Work/School Release Interventions: ED Discharge Assessment Last Done: 06/25/25 19:33 Discharge Date/Time: 03/28/25 19:34 Print Language: Yi
[2025-03-28 15:42] LABS: MANUAL DIFF FLAG NO
[2025-03-28 15:48] VITALS: BP 136/71; PULSE 72; RESP 16; O2SAT 98
[2025-03-28 15:55] VITALS: BP 117/74; PULSE 71; RESP 16; TEMP 36.8; O2SAT 97
[2025-03-28 15:58] LABS: Alanine Aminotransferase 32 U/L (0-40); Albumin Level 5.1 g/dL (3.5-5.0); Alkaline Phosphatase 110 U/L (39-117); Anion Gap 14 (12-20); Aspartate Amino Transferase 36 U/L (5-37); Bilirubin Total 0.9 mg/dL (0.0-1.0); Blood Urea Nitrogen 10 mg/dL (9-16); Calcium 9.7 mg/dL (8.4-10.2); Carbon Dioxide 27 mmol/L (22-29); Chloride 105 mmol/L (96-108); Creatinine Clr Calc Pharmacy 123.7; Estimated Glomerular Filt Rate > 60; Glucose Random 82 mg/dL (60-115); Potassium 3.8 mmol/L (3.3-5.1); Sodium 142 mmol/L (135-145); Total Protein 7.8 g/dL (6.5-8.0)
--- NOTE | 2025-03-28 15:58 | PC.NURSE ---
Patient is a 23-year-old male with past medical history of VSD.?Patient completed abdominal ultrasound 09/2024 showing hepatic steatosis. Patient also completed echocardiogram 08/2024 showing evidence of small ventricular septal defect and normal ventricular systolic function. Patient presents with sudden onset left arm weakness and pain which began at 1245 while at work. Alert and oriented. Tongue midline. No droop. left arm weaker then right. No weakness to bilat LE. Lungs clear bilat. Respirations even and non-labored. Abdomen soft, non-tender with positive bowel sounds. Positive pedal pulses with no edema. PFSH Medical History Hepatosplenomegaly Obesity (BMI 30.0-34.9) Heart murmur
[2025-03-28 16:08] LABS: Basophils Absolute Auto 0.1 X10*3/uL (0.0-0.2); Basophils Percent Auto 0.5 % (0-2); Eosinophils Absolute Auto 0.1 X10*3/uL (0.0-0.4); Eosinophils Percent Auto 0.6 % (0-4); Hematocrit 44.7 % (42.0-52.0); Hemoglobin 15.5 g/dl (14.0-18.0); Imm Gran Abs Auto 0.07 X10*3/uL (0.00-0.03); Imm Gran Pct Auto 0.6 % (0.0-0.4); Lymphocytes Absolute Auto 2.6 X10*3/uL (1.2-4.9); Lymphocytes Percent Auto 23.5 % (20-40); Mean Corpuscular HGB Conc 34.7 g/dl (31.0-36.0); Mean Corpuscular Hemoglobin 29.5 pg (27.0-33.0); Mean Platelet Volume 11.9 fL (9.4-12.4); Monocytes Absolute Auto 0.7 X10*3/uL (0.1-1.2); Monocytes Percent Auto 6.3 % (2-11); Neutrophils Absolute Auto 7.4 x10*3/uL (2.0-8.3); Neutrophils Percent Auto 68.5 % (45-73); Platelet Count 201 X10*3/uL (160-400); Red Blood Count 5.26 X10*6/uL (4.60-5.80); Red Cell Distribution Width 13.1 % (11.0-16.0); White Blood Count 10.8 X10*3/uL (4.8-10.8)
[2025-03-28 18:00] VITALS: BP 101/62; PULSE 67; RESP 16; O2SAT 98
[2025-03-28] MEDS: Ibuprofen 600 MG TABLET PO (19:31)
[2025-03-28 19:33] VITALS: BP 101/62; PULSE 67; RESP 16; TEMP 36.8; O2SAT 98
== END 2025-03-28 19:34 | disposition home or self-care (01) ==
PROVIDERS: Registered Nurse Emergency; Emergency Provider Internal Medicine; PCP Internal Medicine
DX: M79.602 Pain in left arm (principal); G43.909 Migraine, unspecified, not intractable, without status migrainosus; R20.0 Anesthesia of skin
CPT/HCPCS: 36415; 70450; 80053; 82550; 85025; 99284

== ENCOUNTER → 2025-03-28 16:53 | Outpatient (BNV) | payer BC, SELFPAY | PROVIDERS: Emergency Provider Internal Medicine; PCP Internal Medicine; Visit Provider Radiology Diagnostic Radiology | DX: G43.909 Migraine, unspecified, not intractable, without status migrainosus (principal); R53.1 Weakness | CPT/HCPCS: 70450 ==

== ENCOUNTER 2025-04-21 11:42 | Emergency (ER) | payer BC, SELFPAY ==
[2025-04-21 11:50] VITALS: BP 134/75; PULSE 83; RESP 16; TEMP 36.1; O2SAT 97; BMI 31.0
--- NOTE | 2025-04-21 11:59 | ED.GENADULT ---
HPI - General Adult General Chief complaint: Extremity Injury, Lower Stated complaint: r calf inj Time Seen by Provider: 04/21/25 11:57 Source: patient, RN notes reviewed and old records reviewed Mode of arrival: wheelchair Limitations: no limitations History of Present Illness ED Provider: Fatoumata RODRIGUES narrative: 24-year-old male presents for evaluation of right calf pain. Patient was playing basketball when he tried to accelerate and felt a pop in his right lower leg. He reports that he is unable to bear weight He had some numbness in his foot He describes his pain as ?being struck in the back of the calf with a baseball bat. ? Related Data Previous Rx's ?Medication ?Instructions ?Recorded izcujqkblw-ojhmslztgwxhp-ratnvusm 1 tab PO Q6H PRN haeadace #20 tabs 03/28/25 50 mg-325 mg-40 mg tablet ibuprofen 600 mg tablet 600 mg PO Q6H PRN fever or pain 03/28/25 #30 tabs ibuprofen 600 mg tablet 600 mg PO Q8H PRN pain #20 tabs 04/21/25 Allergies Allergy/AdvReac Type Severity Reaction Status Date / Time No Known Allergies Allergy Verified 04/21/25 11:50 Review of Systems Constitutional: Constitutional: Denies body ache(s), Denies chills and Denies fever(s) Cardiovascular: Cardiovascular: Denies chest pain and Denies dyspnea on exertion Respiratory: Respiratory: Denies cough and Denies dyspnea on exertion Musculoskeletal: Musculoskeletal: Denies arthralgias, Denies joint swelling, Reports limited range of motion, Reports muscle cramps, Reports muscle weakness, Reports numbness and Reports radiating pain into limb Neurologic: Reports numbness PMFSH Past Medical History Medical History Obesity (BMI 30.0-34.9) Hepatosplenomegaly Heart murmur Surgical History No pertinent past surgical history Family History Family History Father No problems noted. Mother HTN (hypertension) Seizure Social History Social History Housing: Apartment Alcohol intake: never Patient Tobacco Use Status: Never used Tobacco e-Cigarette/Vaping Use: Never Used Second Hand Smoke Exposure: No Advance Directives: No Advance Directives Information Provided: No service: No Current occupational status: employed Cognitive needs: No Hearing needs: No Vision needs: No Physical Exam ED Vital Signs: Vital Signs - 24 hr 04/21/25 11:50 04/21/25 12:17 Temperature 96.9 F 96.9 F Pulse Rate 83 72 Respiratory Rate 16 16 Blood Pressure 134/75 134/75 Pulse Oximetry 97 97 Oxygen Delivery Method Room Air Room Air BMI result Body Mass Index 31.0 Const General: healthy appearing, comfortable, no acute distress, alert and awake Nutritional Appearance: well nourished Orientation/consciousness: patient oriented x3 HENMT Head: Yes normocephalic and Yes atraumatic Eyes Eyelids: Yes eyelids normal Conjunctivae: conjunctivae normal Sclerae: sclerae normal Corneas: corneas normal Pupils: Equal, round and reactive pupils present EOM: EOMs intact bilaterally Neck Neck: Yes full ROM Resp Effort & Inspection: normal respiratory effort, able to speak in complete sentences and not labored GI Inspection: No distended Palpation (GI): Soft to palpation, not firm, nontender, no guarding and not rigid Skin General skin exam: elasticity normal Neuro General: patient oriented x3 Cranial nerves: Yes Equal, round and reactive pupils present and Yes Bilaterally intact EOM present Cognition (Neuro): normal cognition Extrem Other: The patient has tenderness to the right gastrocnemius area a few cm below the knee. There was no tenderness over the Achilles. He Achilles tendon is palpable, no bogginess. There is no erythema. No ecchymosis. The patient has pain with plantar flexion and dorsiflexion but is able to do so Medical Decision Making Medical Decision Making MDM Narrative: Clinically the patient has a right gastrocnemius tear or plantaris tendon tear. I have a lower suspicion for Achilles tendon rupture. The patient will be placed in a walking boot. He was given crutches. He will be referred to Orthopedics. Differential Diagnosis Differential Diagnoses: The differential diagnosis associated with the presentation includes Gastrocnemius tear Plantaris tendon tear Achilles tendon rupture less likely DVT Discharge Plan Discharge Clinical Impression: Injury of calf Patient Disposition: Home, Self-Care Instructions: Crutch Instructions (ED) Additional Instructions: Your exam is consistent with a calf muscle tear, likely a gastrocnemius tear or plantaris tendon tear. You need to follow up with Orthopedics at the number provided. You may use the walking boot while you are getting around. You can also use crutches Use ibuprofen/Tylenol for pain. You should also apply ice to the swollen area Prescriptions: New ibuprofen 600 mg tablet 600 mg PO Q8H PRN (Reason: pain) Qty: 20 0RF No Action phbubckoou-vbcgxoijacjho-ttks 50-325-40 mg tablet 1 tab PO Q6H PRN (Reason: haeadace) Qty: 20 0RF ibuprofen 600 mg tablet 600 mg PO Q6H PRN (Reason: fever or pain) Qty: 30 0RF Referrals: [facility] [place] Orthopedic Surgeons [Provider Group] Referral Note: likely gastrocnemius tear of right Interventions: ED Discharge Assessment Last Done: 04/21/25 12:17 Discharge Date/Time: 04/21/25 12:18 Print Language: Arabic
[2025-04-21 12:17] VITALS: BP 134/75; PULSE 72; RESP 16; TEMP 36.1; O2SAT 97
== END 2025-04-21 12:18 | disposition home or self-care (01) ==
PROVIDERS: Emergency Provider Emergency Medicine; PCP Internal Medicine
DX: S89.91XA Unspecified injury of right lower leg, initial encounter (principal); X50.9XXA Other and unspecified overexertion or strenuous movements or postures, initial encounter; M79.661 Pain in right lower leg; Y93.67 Activity, basketball; Y92.310 Basketball court as the place of occurrence of the external cause; Y99.8 Other external cause status
CPT/HCPCS: 99282; 99283

== ENCOUNTER 2025-04-25 15:10 | Outpatient (AMB) | payer BC, SELFPAY ==
[2025-04-25 15:11] VITALS: BP 122/76; PULSE 81; RESP 16; TEMP 36.3; O2SAT 99; BMI 35.1
--- NOTE | 2025-04-25 15:11 | MHC.PC.OV ---
Vital Signs 04/25/25 15:11 Height 5 ft 9 in Weight 237 lb 7.005 oz BMI 35.1 BP 122/76 Blood Pressure Location Lt brachial Position Sitting Respiration 16 Pulse 81 Pulse Source Pulse Oximeter Temp 97.3 F Temp Source Temporal Artery Scan Pulse Oximetry (%) 99 Oxygen Delivery Method Room Air Intake Visit Reasons: ED f/u [facility] [place] 04/21/25 Allergies No Known Allergies Allergy (Verified 04/25/25 15:20) Medication List - Last Reconciled 04/25/25 by Moe Paulino PA-C [id number]-nlbgxnghuouir-drug 50-325-40 mg 1 tab PO Q6H PRN ibuprofen 600 mg PO Q6H PRN ibuprofen 600 mg PO Q8H PRN Tobacco use date assessed: 04/25/25 Dental Screening Dental Screen Date: 04/25/25 Did you have a dental visit in the last 12 months?: No Did you have a dental problem in the last 6 months where you did not have access to dental care?: No Was dental information given to patient?: Patient declined HPI ED f/u [facility] [place] 04/21/25 HPI Details The patient is a 24-year-old male presenting for follow-up after an emergency room visit due to a right calf injury sustained while playing basketball. The injury occurred on April 21, 2025, when the patient felt a sudden pop in his right calf while attempting to run, resulting in immediate pain and inability to bear weight. In the emergency room, the patient was provided with a boot and crutches and advised to follow up with orthopedics. The patient reports no pain in the Achilles tendon, and examination confirmed the Achilles is intact. The patient describes the sensation in the calf as feeling off, particularly when pressure is applied, although there is no significant pain reported. He has an appointment with orthopedics scheduled for May 15, 2025, and is considering physical therapy to improve range of motion and calf function. [facility] Medical History Obesity (BMI 30.0-34.9) Hepatosplenomegaly Heart murmur Surgical History No pertinent past surgical history Family History Father No problems noted. Mother HTN (hypertension) Seizure Social History Housing: Apartment Alcohol intake: never Patient Tobacco Use Status: Never used Tobacco e-Cigarette/Vaping Use: Never Used Second Hand Smoke Exposure: No service: No Current occupational status: employed Cognitive needs: No Hearing needs: No Vision needs: No Questionnaire PHQ-9 Over the last 2 weeks, how often have you been bothered by any of the following problems? 1. Little interest or pleasure in doing things: not at all 2. Feeling down, depressed, or hopeless: several days 3. Trouble falling or staying asleep, or sleeping too much: nearly every day 4. Feeling tired or having little energy: not at all 5. Poor appetite or overeating: more than half the days 6. Feeling bad about yourself - or that you are a failure or have let yourself or your family down: not at all 7. Trouble concentrating on things, such as reading the newspaper or watching television: several days 8. Moving or speaking so slowly that other people could have noticed. Or the opposite - being so fidgety or restless that you have been moving around a lot more than usual: not at all 9. Thoughts that you would be better off or of hurting yourself in some way: not at all Total score: 7 Depression Screening Interpretation: Positive Depression Screening Follow-up: Existing condition Depression Screening Done: Yes 28750 - PHQ-9 Billing: Yes Source: Developed by Drs. Erik Stewart, Leslie Cervantes, Chance Church and colleagues, with an educational pamela from [employer]. Thrive Questionnaire Date Thrive assessed: 11/14/24 I am a: Patient What is your living situation today?: I have a steady place to live Within the past 12 months, did the food you bought not last and you didn't have the money to get more?: Sometimes True Within the past 12 months, did you worry whether your food would run out before you got money to buy more?: Sometimes True Do you have trouble paying for medicines?: No Do you have trouble getting transportation to medical appointments?: No Do you have trouble paying your heating and electricity bill?: No Do you have trouble taking care of your child, family member or friend?: No Do you have trouble with day-to-day activities such as bathing, preparing meals, shopping, managing finances, etc.?: No Are you currently unemployed and looking for a job?: No Are you interested in more education?: No Please select the resources that you would like help with: None Currently or been in a relationship where the following occur: No concerns reported THRIVE Score: 2 AUDIT C Alcohol Use Questionnaire (AUDIT-C) 1. How often do you have a drink containing alcohol?: Never 3. How often do you have six or more drinks on one occasion?: Never Total Score: 0 RORY-7 AMB Questionnaire RORY-7 Date RORY - 7 assessed: 11/14/24 Feeling nervous, anxious, or on edge: 0 = Not at all Not being able to stop or control worryin = Not at all Worrying too much about different things: 0 = Not at all Trouble relaxin = Not at all Being so restless that it is hard to sit still: 0 = Not at all Becoming easily annoyed or irritable: 2 = More than half the days Feeling afraid as if something awful might happen: 0 = Not at all Total RORY-7 score (0-4 normal; 5-9 mild; 10-14 moderate; 15-21 severe): 2 Source: Developed by Drs. Erik Stewart, Leslie Cervantes, Chance Church and colleagues, with an educational pamela from [employer]. RORY-7 Assessment Billing RORY-7 Assessment Tool: RORY-7 Assessment 65384 Review of Systems Const Denies headache(s) Eyes Denies loss of vision ENT Denies vertigo, Denies dizziness, Denies headache(s) and Denies sore throat Card Denies chest pain, Denies leg edema and Denies lightheadedness Resp Denies cough, Denies hemoptysis and Denies wheezing GI Denies abdominal pain, Denies melena, Denies constipation, Denies diarrhea and Denies vomiting Denies dysuria, Denies urinary frequency and Denies urinary urgency Musc Denies arthralgias, Denies joint swelling, Denies numbness and Denies tingling Neuro Denies Abnormal speech present, Denies behavioral changes, Denies vertigo, Denies dizziness, Denies headache(s), Denies loss of vision, Denies memory loss, Denies numbness and Denies tingling Psych Denies anxiety, Denies behavioral changes, Denies depression, Denies memory loss and Denies panic attacks Maninder/Lymph Denies easy bleeding and Denies easy bruising Aller/Immun Denies wheezing Physical exam (Primary Care) Vital Signs: Last Vital Signs Temp 97.3 F 04/25/25 15:11 Pulse 81 04/25/25 15:11 Resp 16 04/25/25 15:11 BP 122/76 04/25/25 15:11 Pulse Ox 99 04/25/25 15:11 Oxygen Delivery Method Room Air 04/25/25 15:11 BMI result Body Mass Index 35.1 Tobacco/Smoking Status: Tobacco use Status Tobacco use date assessed 04/25/25 04/25/25 15:18 Patient Tobacco Use Status Never used Tobacco 04/25/25 15:18 e-Cigarette/Vaping Use Never Used 04/25/25 15:18 PHQ-9: PHQ-9 Score PHQ-9: Total score 7 04/25/25 15:18 Depression Screening Interpretation: Positive Depression Screening Follow-up: Existing condition Thrive Assessment: Date of Thrive Assessment Date Thrive assessed 11/14/24 04/25/25 15:18 Currently or been in a relationship where the following occur: No concerns reported Const General: healthy appearing, no acute distress, alert and awake Nutritional Appearance: well nourished Orientation/consciousness: oriented to person, oriented to place and oriented to time HENMT Ears: TM's normal bilaterally General nose exam: Normal nasal mucous membranes and turbinates present Eyes Conjunctivae: conjunctivae normal Sclerae: sclerae normal Pupils: Equal, round and reactive pupils present Neck Neck: Yes no lymphadenopathy and Yes no JVD Thyroid: Thyroid normal Carotids: no bruits Resp Effort & Inspection: normal respiratory effort and not tachypneic Auscultation: no crackles, no rales, no rhonchi and no wheezes Cardio Rate: regular rate Rhythm: regular rhythm Heart sounds: no murmurs and normal S1 and S2 GI Palpation (GI): Soft to palpation, nontender, no hepatomegaly and no splenomegaly Auscultation: normal bowel sounds Skin General skin exam: no rashes or lesions noted and dry skin Neuro General: oriented to person, oriented to place and oriented to time Cranial nerves: Yes Equal, round and reactive pupils present Speech: No Abnormal speech present Gait exam (Neuro): Normal gait present Motor exam (neuro): no tremor noted Extrem Other: RIGHT CALF: SLIGHT EDEMA IN THE POSTEROMEDIAL ASPECT OF THE CALF. NEGATIVE BEACH'S TEST. NO NOTABLE LUMP ALONG THE ACHILLES TENDON Right upper extremity: full ROM Left upper extremity: full ROM Right lower extremity: full ROM; no edema Left lower extremity: full ROM; no edema Psych Mental Status: mental status grossly normal Speech and movement: Normal speech and movement present Affect: normal affect Attitude: cooperative Thought process: Normal thought process present Coding Level of Care Code Est Pt Level 3 (20381) Diagnoses Rupture of right gastrocnemius tendon, initial encounter S86.111A Encounter type: initial encounter Laterality: right Additional Codes PHQ-9 - 44855 - PHQ-9 Billing: Yes ([id number]) RORY-7 Assessment Billing - RORY-7 Assessment Tool: RORY-7 Assessment 67127 ([id number]) Assessment & Plan Assessment & Plan (1) Gastrocnemius muscle tear: Code(s): S86.119A - Strain of other muscle(s) and tendon(s) of posterior muscle group at lower leg level, unspecified leg, initial encounter Category: Medical Qualifiers: Encounter type: initial encounter Laterality: right Qualified Code(s): S86.111A - Strain of other muscle(s) and tendon(s) of posterior muscle group at lower leg level, right leg, initial encounter Plan: The patient will continue using the boot for stabilization and crutches as needed to avoid weight-bearing on the affected leg. An MRI of the right tibia is planned to assess the extent of the injury, and physical therapy will be initiated to improve range of motion and calf function. The patient is advised to ice the area to reduce inflammation and elevate the leg to decrease swelling. The patient is scheduled to follow up with orthopedics on May 15, 2025, for further evaluation and management. Gave him letter with specific restrictions as it relates to his work. Orders: Orders PT Evaluation and Treatment Today S86.119A - Strain of other muscle(s) and tendon(s) of posterior muscle group at lower leg level, unspecified leg, initial encounter MR Tibia RT wo Contrast Today S86.119A - Strain of other muscle(s) and tendon(s) of posterior muscle group at lower leg level, unspecified leg, initial encounter
== END 2025-04-25 15:44 | disposition home or self-care (01) ==
LOC: HO.HMCH 15:10
PROVIDERS: PCP Internal Medicine; Visit Provider Physician Assistant
DX: S86.111A Strain of other muscle(s) and tendon(s) of posterior muscle group at lower leg level, right leg, initial encounter (principal)

== ENCOUNTER → 2025-04-25 15:10 | Outpatient (BNVA) | payer BC, SELFPAY | PROVIDERS: PCP Internal Medicine; Visit Provider Physician Assistant | DX: S86.111A Strain of other muscle(s) and tendon(s) of posterior muscle group at lower leg level, right leg, initial encounter (principal); X58.XXXA Exposure to other specified factors, initial encounter; Y93.67 Activity, basketball; Y92.9 Unspecified place or not applicable; Y99.9 Unspecified external cause status; Z13.31 Encounter for screening for depression | CPT/HCPCS: 96127 ==

== ENCOUNTER 2025-05-15 13:52 | Outpatient (AMB) | payer BC, SELFPAY ==
--- NOTE | 2025-05-15 14:01 | A.OFFVIS_ITS ---
Vital Signs 05/15/25 14:21 Height 5 ft 9 in Weight 226 lb BMI 33.4 Intake Visit Reasons: FC-Rt knee gastroc strain DOI:04/21/25 Intake Note: Poli is a 24 year old male, new patient, who presents today for evaluation of a right gastroc strain, DOI: 04/21/25. Patient was evaluated at [facility] [place] ED where he reported he was playing basketball. He tried to take a step to start running he felt a pop in his right lower leg. He was unable to bear weight at the time. While at the ED he was given a walking boot and crutches, if needed. He was told to take ibuprofen and Tylenol, and to apply ice to the swollen areas. He states that today he is about to apply his body weight in his right lower extremity. Allergies No Known Allergies Allergy (Verified 05/15/25 14:19) HPI HPI FC-Rt knee gastroc strain DOI:04/21/25: Details: Mr. Hoff is a 24-year-old male who presents to the office today for evaluation of a right calf injury that he sustained on 04/21/2025. He states that he went to go push off the ground to start running and felt a snapping sensation like he got hit in the calf muscle belly. He presented to the emergency department where he was evaluated and placed into a tall walking boot and instructed to follow up with orthopedics outpatient for further evaluation and treatment. He reports that he stayed in the walking boot for roughly 2 weeks and then transition into a supportive sneaker. He reports he does have some mild pain in the calf today but states that this has been drastically improving over the past few weeks. [facility] Medical History Obesity (BMI 30.0-34.9) Hepatosplenomegaly Heart murmur Surgical History No pertinent past surgical history Family History Father No problems noted. 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 No ecchymosis, erythema, or edema. Patient is able to demonstrate dorsiflexion, plantar flexion, pronation and supination. Slight discomfort with calf squeeze. Negative Aguillon's test. Sensation intact. Psych Appearance: grossly normal Mental Status: mental status grossly normal Attitude: cooperative Assessment & Plan Assessment & Plan (1) Strain of right gastrocnemius muscle or tendon: Code(s): S86.111A - Strain of other muscle(s) and tendon(s) of posterior muscle group at lower leg level, right leg, initial encounter Category: Medical Plan Mr. Hoff is a 24-year-old male who presents to the office today for evaluation of a right calf injury that he sustained on 04/21/2025. He states that he went to go push off the ground to start running and felt a snapping sensation like he got hit in the calf muscle belly. He presented to the emergency department where he was evaluated and placed into a tall walking boot and instructed to follow up with orthopedics outpatient for further evaluation and treatment. He reports that he stayed in the walking boot for roughly 2 weeks and then transition into a supportive sneaker. He reports he does have some mild pain in the calf today but states that this has been drastically improving over the past few weeks. While in the office today, we discussed physical therapy but the patient has been steadily improving and therefore this has been deferred at this time. He w ill continue activities as tolerated. He will followup with orthopedics p.r.n., sooner if needed. Coding Level of Care Code New Pt Level 3 (72013) Diagnoses Strain of right gastrocnemius muscle or tendon S86.111A
[2025-05-15 14:21] VITALS: BMI 33.4
== END 2025-05-15 14:40 | disposition home or self-care (01) ==
LOC: HO.HOS 13:53
PROVIDERS: PCP Internal Medicine; Visit Provider Physician Assistant
DX: S86.111A Strain of other muscle(s) and tendon(s) of posterior muscle group at lower leg level, right leg, initial encounter (principal)
CPT/HCPCS: 99203